=== PATIENT | female | born 1960 | race Caucasian/White ===

== ENCOUNTER 2017-10-09 08:14 | Inpatient (IN) | payer BC, SELFPAY ==
[2017-10-09 08:16] VITALS: BP 144/67; PULSE 94; RESP 18; TEMP 37.1; O2SAT 98; BMI 31.6
--- NOTE | 2017-10-09 08:35 | CT_ITS ---
STUDY: CT ABDOMEN AND PELVIS WITH CONTRAST REASON FOR EXAM: Female, 56 years old. Diarrhea. RADIATION DOSAGE (If Supplied By Facility): CTDIvol = ( 14.91 ) mGy, DLP = ( 917.97 ) mGycm TECHNIQUE: Transaxial images were obtained from the dome of the diaphragm to the symphysis pubis without oral contrast. 100 ml of Isovue 300 contrast was administered. Sagittal and coronal images were reconstructed. Individualized dose optimization techniques were used for this CT. COMPARISON: None. FINDINGS: The visualized lung bases are unremarkable. The visualized portions of the heart are within normal limits. Normal liver. Normal gallbladder and extrahepatic biliary system. Normal spleen. Normal pancreas. Normal bilateral adrenal glands. Normal right kidney. Normal left kidney. Normal visualized stomach. Normal small intestine. There is thickening of the mckinley of the transverse colon, descending colon and sigmoid colon suggesting colitis. The appendix is visualized and appears normal. Normal abdominal aorta. Normal inferior vena cava. Normal retroperitoneum. Normal urinary bladder. Normal abdominal wall. There are diffuse degenerative changes of the visualized lumbar spine. CT/Abdomen/Pelvis WITH Contrast IMPRESSION: Colitis in the transverse colon, descending colon and sigmoid colon. Electronically Signed: Jose Perdue MD at 11:43 EDT Tel , Service support ,
--- NOTE | 2017-10-09 08:41 | ED.DCSUM_ITS ---
- ER Visit Summary Date of Service: 10/09/17 Chief Complaint: GI bleed History of Present Illness: The patient is a 56 F who developed nausea, vomiting , diarrhea yesterday evening after Easter dinner. Patient states overnight she progressed and passing just bright red blood rectally. She is complaining of abdominal cramping and occasional dizziness. She does describe a vasovagal episode yesterday while on the toilet, but did not have syncope. Patient has never had a colonoscopy previously. She has no known chronic bowel disorders. She is not on anticoagulants. Physical Examination: Vital signs are unremarkable. Patient sitting upright in bed no acute distress. Heart is regular rate and rhythm. Lung sounds are clear. Abdomen is soft with mild lower abdominal tenderness to palpation. There is no guarding or rebound. Hypoactive bowel sounds are present. Test Results: CBC was a white count 22.1 with 84% neutrophils. Hemoglobin is 15.1. Chemistry studies are significant for glucose of 127, otherwise unremarkable. Coags are normal. CT scan of the abdomen and pelvis reveals colitis in the transverse, descending, and sigmoid colon. Lactate was drawn and is normal. Emergency Department Course and Treatment: Patient was given morphine, Zofran, and IV fluids. Due to continued pain she did receive Dilaudid and Bentyl. She is given dose IV Zosyn. I spoke with Dr. Mar as well as the hospitalist and the patient will be admitted. Treatment Plan: [] Disposition: Admit Impression: 1. Colitis 2. GI bleed This note was generated with [employer] dictation software. It may contain incorrect words, spelling, and punctuation that were not noted in review of the chart prior to signing ED Disposition - Plan for ED Patient: Chief Complaint: GI Bleed Referrals: Moses Sutton DO [Primary Care Provider] -
[2017-10-09 08:55] LABS: Absolute Lymphocyte Count 1.82 X10^3/ul (0.83-4.51); Absolute Neutrophil Count 18.5 X10^3/uL (2.0-7.7); Basophil# 0.03 X10^3/uL; Basophil% 0.1 % (0-1); Eosinophil# 0.18 X10^3/uL; Eosinophils% 0.8 % (0-5); Hematocrit 44.5 % (37-47); Hemoglobin 15.1 g/dl (12.0-15.0); Lymphocyte # 1.82 X10^3/ul (4.0); Lymphocyte % 8.3 % (19-41); Mean Corp Hgb Conc 33.9 g/gl (32-36); Mean Corpuscular Volume 85.6 fL (81-99); Mean Platelet Vol. 11.2 fl (6.2-12.0); Monocyte# 1.43 X10^3/uL; Monocyte% 6.5 % (0-10); Neutrophil # 18.54 X10^3/uL (2.7-7.7); Platelet Count 411 K/mm3 (150-450); RBC Distribution Width CV 13.3 % (11.6-14.6); RBC Distribution Width SD 41.2 fl (35.1-43.9); White Blood Count 22.1 K/mm3 (4.4-11.0)
[2017-10-09 08:56] LABS: BUN 14 mg/dL (7-18); Creatinine, Serum 0.85 mg/dL (0.55-1.02); Glucose 127 mg/dL (74-106)
[2017-10-09 08:57] LABS: Anion Gap 9 (5-15); BUN/Creat Ratio 16.5 RATIO (10-20); Calcium,Total 9.4 mg/dL (8.5-10.1); Chloride 102 mmol/L (98-107); EST Glomerular Filtration Rate 74 mL/min (>60); Est Glom Filt Rate - Afr Amer 89 mL/min (>60); Potassium 4.3 mmol/L (3.5-5.1); Sodium Level 137 mmol/L (136-145)
[2017-10-09 08:58] LABS: POSITIVE COUNT NO; POSITIVE DIFFERENTIAL NO; POSITIVE MORPHOLOGY NO
[2017-10-09] MEDS: 0.9% Normal Saline 1,000 ML 1000 ML IV (09:05)
[2017-10-09] MEDS: Ondansetron 4 MG/2 ML Vial IV ×2 (09:05→10:42)
[2017-10-09] MEDS: Morphine 4 MG/ML Syringe IV ×2 (09:06→10:42)
[2017-10-09 09:11] LABS: International Normalized Ratio 1.1; Prothrombin Time (Protime)PT. 13.7 SECONDS (11.7-14.9)
--- NOTE | 2017-10-09 09:35 | CASEMGMT ---
Social Work Note SW in to complete initial assessment as pt is anticipated to be admitted. Introduced self and role at [facility]. Pt presents with pleasant affect as evidenced by smiling and willingness to participate in assessment. She is accompanied by 3 family members and reports to have adequate supports. Reports to be a patient of Dr. Sutton's and utilizes [facility] pharmacy. Pt lives in a one-story home with her spouse and son. The home has two entry steps and no handrails, but the pt denies access issues. DME consists of a walker and cane, but the pt does not use at her baseline. Reports two knee operations in 2017(January and March) by Dr. Gorman, and is no longer participating in outpatient therapy. Pt is not working as she is still recovering from these surgeries, but claims to be financially stable and denies need for resources. Denies hx of substance use, and denies mental health hx. Pt does not anticipate any discharge needs, but made aware staff is available if needs arise. Gisselle Sousa, [employer], D[employer] SUPERINTENDENT
--- NOTE | 2017-10-09 10:31 | ED.RN ---
1020-Report received, care of patient assumed. Patient ambulatory to bathroom with slow and steady gait. C/o increased pain to abd. Await CT scan. Dr. Ronquillo notified of increased pain.
[2017-10-09 10:32] VITALS: BP 189/82; PULSE 77; RESP 16; O2SAT 99
[2017-10-09] MEDS: 0.9% Normal Saline 1,000 ML 150 ML IV (10:43)
[2017-10-09] MEDS: HYDROmorphone 1 MG/ML Syringe 0.5 MG IV (11:31)
[2017-10-09 12:01] LABS: Lactic Acid 1.2 mmol/L (0.4-2.0)
[2017-10-09 12:08] VITALS: BP 184/107; PULSE 89; RESP 14; O2SAT 98
[2017-10-09] MEDS: Dicyclomine 20 MG/2 ML Vial IM (12:19)
[2017-10-09 13:21] VITALS: BP 168/77; PULSE 87; RESP 16; O2SAT 98
[2017-10-09 13:29] LABS: Erythrocyte Sedimentation Rate 11 mm/hr (0-30)
[2017-10-09 13:51] VITALS: BP 169/76; PULSE 72; RESP 18; TEMP 36.9; O2SAT 98
[2017-10-09 13:52] VITALS: BMI 31.9
[2017-10-09 13:59] VITALS: BMI 32.0
[2017-10-09] MEDS: 0.9% Normal Saline 1,000 ML 100 ML IV (14:11)
[2017-10-09] MEDS: levoFLOXacin IV 500 MG/100 ML BAG 100 MG IV (14:30)
[2017-10-09] MEDS: HYDROmorphone 1 MG/ML Syringe IV ×2 (14:34→17:09)
--- NOTE | 2017-10-09 16:35 | PCM.HP.STD ---
History of Present Illness Date of Admission: 10/09/17 Chief Complaint: Abdominal pain and bloody diarrhea The patient is a 56 year old female with past medical history of essential hypertension and dyslipidemia who presented to the emergency room due to abdominal pain and bloody diarrhea. She developed acute onset of nausea, vomiting, diarrhea yesterday evening after Easter dinner. She later had red blood per rectum and abdominal cramping. Started feeling dizzy and decided to come to the emergency room for evaluation. CT scan of the abdomen and pelvis done in the ED demonstrated colitis in the transverse , descending and sigmoid colon. Also noted to have leukocytosis of more than 22,000, on IV Zosyn and admitted to the hospital for further management. General Surgery was consulted from the emergency room . Past Medical History Allergies meperidine [From Demerol] Allergy (Verified 10/09/17 08:16) Shortness of breath ETHIBOND STITCHES Allergy (Uncoded 10/09/17 08:16) Other NON HEALING/INFECTION SMOOTH STAINLESS Allergy (Uncoded 10/09/17 08:16) Other EATING THE FLESH ON MY SKIN Home Medications: Ambulatory Orders Medication Instructions Recorded Lisinopril/Hydrochlorothiazide 1 tablet PO DAILY 01/16/17 [Zestoretic 10/12.5 Tablet] Valacyclovir HCl [Valacyclovir] 1,000 mg PO BID PRN 01/16/17 Celecoxib [Celebrex] 200 mg PO DAILY 10/09/17 Rosuvastatin Calcium [Crestor] 10 mg PO QHS 10/09/17 Tizanidine HCl [Zanaflex] 2 mg PO Q8H 10/09/17 Smoking Status: Never smoker - *Family History Maternal History Items: No pertinent history VTE Information - Inpt Only VTE Present on Admission: No VTE Mechan Device Prophylaxis: SCD's VTE Pharm Prophylaxis ordered?: No Patient Problems: Active and Suspected Problems Colitis (Acute) GI bleeding (Acute) - Physical Exam General: Alert, Oriented x3 HEENT: Atraumatic Oral: Moist Mucosa Neck: Supple Lungs: Clear to auscultation Cardiovascular: Regular rate, Normal S1, Normal S2 Abdomen: Bowel Sounds Present, Soft, Non Tender, Non-Distended Extremities: No edema Neurological: Deep Tendon Reflexes 2+/4 and Symmetrical, Motor Exam 5/5 strength throughout Vital Signs Temp Pulse Resp BP Pulse Ox 98.4 F 72 18 169/76 H 98 04/02/18 13:51 10/09/17 13:51 10/09/17 13:51 10/09/17 13:51 10/09/17 13:51 Oxygen Delivery Method Room Air Weight: 87.09 kg Body Mass Index (BMI) 31.9 Assessment/Plan Active and Suspected Problems Colitis (Acute) GI bleeding (Acute) 1. Acute Colitis; this is most likely infectious versus inflammatory, will obtain sedimentation rate and C-reactive protein, the patient has been started on intravenous antibiotics and fluids. Will need to undergo colonoscopy possible biopsy after the acute phase. 2. Acute gastrointestinal bleed secondary to #1 we will continue to monitor her hemoglobin closely. 3. Essential hypertension; the patient is currently dehydrated and will hold off on antihypertensive therapy at this time. 4. Obesity; weight loss recommended. 5. DVT prophylaxis with SCDs. Code Visit Inpatient E&M: 14685 Init Hosp L3
--- NOTE | 2017-10-09 16:40 | CON.PCM_ITS ---
Problem List (1) Colitis Status: Acute (2) GI bleeding Status: Acute Qualifiers: GI bleed type/associated pathology: unspecified gastrointestinal hemorrhage type Qualified Code(s): K92.2 - Gastrointestinal hemorrhage, unspecified Reason for Consult Date of Consultation: 10/09/17 History of Present Illness: The patient is a 56 F who developed nausea, vomiting, diarrhea yesterday evening after Easter dinner. Patient states overnight she progressed and passing just bright red blood rectally. She is complaining of abdominal cramping and occasional dizziness. She does describe a vasovagal episode yesterday while on the toilet, but did not have syncope. Patient has never had a colonoscopy previously. She has no known chronic bowel disorders. She is not on anticoagulants. A day or 2 prior to Easter dinner she did have a hamburger from [facility] but felt fine after that. Patient has never had a history of colitis or diverticulitis in the past. Past Medical History Allergies meperidine [From Demerol] Allergy (Verified 10/09/17 08:16) Shortness of breath ETHIBOND STITCHES Allergy (Uncoded 10/09/17 08:16) Other NON HEALING/INFECTION SMOOTH STAINLESS Allergy (Uncoded 10/09/17 08:16) Other EATING THE FLESH ON MY SKIN Home Medications: Ambulatory Orders Medication Instructions Recorded Lisinopril/Hydrochlorothiazide 1 tablet PO DAILY 01/16/17 [Zestoretic 10/12.5 Tablet] Valacyclovir HCl [Valacyclovir] 1,000 mg PO BID PRN 01/16/17 Celecoxib [Celebrex] 200 mg PO DAILY 10/09/17 Rosuvastatin Calcium [Crestor] 10 mg PO QHS 10/09/17 Tizanidine HCl [Zanaflex] 2 mg PO Q8H 10/09/17 Surgical History: - - Knee surgery Smoking Status: Never smoker Alcohol: Rare - *Family History Maternal History Items: No pertinent history Review of Systems Constitutional: Denies: Chills, Fever, Weight Change Eyes: Denies: Blurred vision, Pain, Redness, Vision Change HEENT: Denies: Dysphasia, Ear Pain, Eye Pain, Head Aches, Hearing Changes, Sore Throat Cardiovascular: Denies: Chest Pain, Chest Pressure, Chest Tightness, Palpitations Respiratory: Denies: Cough, Hemoptysis, Shortness of breath at rest, Shortness of breath upon exertion, Wheezing Gastrointestinal: Reports: Abdominal Pain, Diarrhea, Hematochezia, Nausea, Vomiting Genitourinary: Denies: Dysuria, Frequency, Hematuria, Urgency Musculoskeletal: Denies: Joint Pain Skin: Denies: Lesions, Rash, Wounds Neurological: Denies: Change in Speech, Confusion, Numbness, Tingling, Seizures Psychiatric: Denies: Anxiety, Depression Endocrine: Denies: Heat/ Cold Intolerance, Polydipsia, Polyuria Hematologic/ Lymphatic: Denies: Adenopathy, Easy Bruising Patient Problems: Active and Suspected Problems Colitis (Acute) GI bleeding (Acute) - Physical Exam General: Alert, Oriented x3 Lungs: Clear to auscultation Cardiovascular: Regular rate, Regular Rhythm, No murmurs Abdomen: Soft, Distended, Obese, Tender - Tenderness is mostly in the left upper quadrant radiating down to the left flank area. Vital Signs Temp Pulse Resp BP Pulse Ox 98.4 F 72 18 169/76 H 98 10/09/17 13:51 10/09/17 13:51 10/09/17 13:51 10/09/17 13:51 10/09/17 13:51 Oxygen Delivery Method Room Air Weight: 192 lb Body Mass Index (BMI) 31.9 Assessment/Plan Active and Suspected Problems Colitis (Acute) GI bleeding (Acute) We will follow along with the patient. Hopefully her symptoms will improve and we will not need to do a colonoscopy during this admission. However if she is increasing in discomfort will need to reconsider a possible colonoscopy at this admission. However I would like not to do that for fear of perforation.
[2017-10-09 19:52] VITALS: BP 134/76; PULSE 87; RESP 16; TEMP 36.9; O2SAT 100
[2017-10-09] MEDS: Acetaminophen 325 MG Tablet 650 MG PO (20:37)
[2017-10-10] MEDS: 0.9% Normal Saline 1,000 ML 100 ML IV ×3 (00:12→23:31)
[2017-10-10 02:00] VITALS: BP 134/68; PULSE 81; RESP 16; TEMP 36.8; O2SAT 98
[2017-10-10] MEDS: HYDROmorphone 1 MG/ML Syringe IV ×4 (02:57→17:06)
[2017-10-10 06:33] LABS: Absolute Lymphocyte Count 2.16 X10^3/ul (0.83-4.51); Basophil# 0.02 X10^3/uL; Basophil% 0.1 % (0-1); Eosinophil# 0.17 X10^3/uL; Hematocrit 36.7 % (37-47); Hemoglobin 11.9 g/dl (12.0-15.0); Lymphocyte # 2.16 X10^3/ul (4.0); Lymphocyte % 12.9 % (19-41); Mean Corp Hgb Conc 32.4 g/gl (32-36); Mean Corpuscular Hgb 28.5 pg (27.0-32.0); Mean Platelet Vol. 10.7 fl (6.2-12.0); Monocyte% 8.4 % (0-10); Neutrophil # 12.98 X10^3/uL (2.7-7.7); Neutrophil % 77.4 % (47-70); Platelet Count 262 K/mm3 (150-450); RBC Distribution Width CV 13.7 % (11.6-14.6); RBC Distribution Width SD 44.2 fl (35.1-43.9); Red Blood Count 4.17 M/mm3 (4.2-5.4); White Blood Count 16.8 K/mm3 (4.4-11.0)
[2017-10-10 06:34] LABS: POSITIVE COUNT NO; POSITIVE DIFFERENTIAL NO; POSITIVE MORPHOLOGY NO
[2017-10-10 06:49] LABS: Anion Gap 6 (5-15); BUN 5 mg/dL (7-18); BUN/Creat Ratio 9.2 RATIO (10-20); Calcium,Total 8.1 mg/dL (8.5-10.1); Chloride 108 mmol/L (98-107); Creatinine, Serum 0.54 mg/dL (0.55-1.02); EST Glomerular Filtration Rate 123 mL/min (>60); Est Glom Filt Rate - Afr Amer 149 mL/min (>60); Estimated Creatinine Clearance 104.68 ml/min; Glucose 112 mg/dL (74-106); Potassium 3.6 mmol/L (3.5-5.1); Sodium Level 139 mmol/L (136-145)
--- NOTE | 2017-10-10 08:12 | PN.SURG_ITS ---
Patient Problems: Active and Suspected Problems Colitis (Acute) GI bleeding (Acute) Subjective: Patient evaluated resting comfortably in bed. She notes her abdominal discomfort is much improved. She has not noted blood per rectum over night. She denies nausea, vomiting. She is tolerating clear liquids well. C Diff was negative. - Physical Exam General: Alert, Oriented x3, Cooperative Abdomen: Soft, Non-Distended, Hyperactive Bowel Sounds, Tender - generalized Vital Signs Temp Pulse Resp BP Pulse Ox 98.3 F 81 16 134/68 H 98 10/10/17 02:00 10/10/17 02:00 10/10/17 02:00 10/10/17 02:00 10/10/17 02:00 Oxygen Delivery Method Room Air Weight: 192 lb Body Mass Index (BMI) 31.9 Intake and Output for Last 24 Hours 10/08/17 10/09/17 10/10/17 23:59 23:59 23:59 Intake Total 301 / 301 2463 / 2463 Output Total 400 / 400 200 / 200 Balance -99 / -99 2263 / 2263 Laboratory Tests Past 24 Hrs 10/10/17 10/10/17 06:06 06:06 WBC 16.8 H RBC 4.17 L Hgb 11.9 L Hct 36.7 L MCV 88.0 MCH 28.5 MCHC 32.4 RDW 13.7 RDW Differential 44.2 H Plt Count 262 MPV 10.7 Immature Gran % (Auto) 0.200 Neut % (Auto) 77.4 H Lymph % (Auto) 12.9 L [place] % (Auto) 8.4 Eos % (Auto) 1.0 Baso % (Auto) 0.1 Absolute Neuts (auto) 13.0 H Absolute Lymphs (auto) 2.16 Total Counted Not Reportable Sodium 139 Potassium 3.6 Chloride 108 H Carbon Dioxide 25.0 Anion Gap 6 BUN 5 L Creatinine 0.54 L Estim Creat Clear Calc 104.68 Est GFR (MDRD) Af Amer 149 Est GFR (MDRD) Non-Af 123 BUN/Creatinine Ratio 9.2 L Glucose 112 H Calcium 8.1 L Medical Necessity - Tobacco Use Smoking Status: Never smoker Assessment/Plan Active and Suspected Problems Colitis (Acute) GI bleeding (Acute) I am following this patient in conjunction with Dr. Mar Impression: Colitis, unknown etiology Stool cultures pending C Diff negative Patient improving Continue antibiotics at this point We will continue to monitor this patient
[2017-10-10 08:49] VITALS: BP 119/67; PULSE 86; RESP 18; TEMP 36.8; O2SAT 97
[2017-10-10] MEDS: levoFLOXacin IV 500 MG/100 ML BAG 100 MG IV (08:51)
--- NOTE | 2017-10-10 11:44 | PN_ITS ---
Patient Problems: Active and Suspected Problems Colitis (Acute) GI bleeding (Acute) Subjective: CC: Abdominal pain and bloody diarrhea Objective: She reports improvement in her abdominal pain and bloody diarrhea. She wants to advance her diet. Vitals/I&O's: Vital Signs Temp Pulse Resp BP Pulse Ox 98.3 F 86 18 119/67 97 10/10/17 08:49 10/10/17 08:49 10/10/17 08:49 10/10/17 08:49 10/10/17 08:49 Oxygen Delivery Method Room Air Weight: 87.09 kg Body Mass Index (BMI) 31.9 Intake and Output for Last 24 Hours 10/08/17 10/09/17 10/10/17 23:59 23:59 23:59 Intake Total 301 / 301 2974 / 2974 Output Total 400 / 400 250 / 250 Balance -99 / -99 2724 / 2724 General: Alert, Oriented x3 Neck: Supple Lungs: Clear to auscultation, No wheeze Cardiovascular: Regular rate, Normal S1, Normal S2 Abdomen: Bowel Sounds Present, Soft, Non-Distended Extremities: No edema Laboratory Results 10/10/17 06:06: WBC 16.8 H, RBC 4.17 L, Hgb 11.9 L, Hct 36.7 L, MCV 88.0, MCH 28.5, MCHC 32.4, RDW 13.7, RDW Differential 44.2 H, Plt Count 262, MPV 10.7, Immature Gran % (Auto) 0.200, Neut % (Auto) 77.4 H, Lymph % (Auto) 12.9 L, [place] % (Auto) 8.4, Eos % (Auto) 1.0, Baso % (Auto) 0.1, Absolute Neuts (auto) 13.0 H , Absolute Lymphs (auto) 2.16, Total Counted Not Reportable 10/10/17 06:06: Sodium 139, Potassium 3.6, Chloride 108 H, Carbon Dioxide 25.0, Anion Gap 6, BUN 5 L, Creatinine 0.54 L, Estim Creat Clear Calc 104.68, Est GFR (MDRD) Af Amer 149, Est GFR (MDRD) Non-Af 123, BUN/Creatinine Ratio 9.2 L, Glucose 112 H, Calcium 8.1 L Current Medications Acetaminophen (Tylenol) 650 mg PO Q6H PRN PRN PRN Reason: HEADACHE Last Admin: 10/09/17 20:37 Dose: 650 mg Hydromorphone HCl (Dilaudid Iv) 1 mg IV Q2H PRN PRN PRN Reason: SEVERE PAIN (6-10/10) Last Admin: 10/10/17 08:59 Dose: 1 mg Metronidazole (Flagyl) 500 mg in 100 mls @ 100 mls/hr IV Q6 PAGE Last Admin: 10/10/17 06:26 Dose: 100 mls/hr Sodium Chloride () 1,000 mls @ 100 mls/hr IV .Q10H PAGE Last Admin: 10/10/17 00:12 Dose: 100 mls/hr Levofloxacin (Levaquin Iv) 500 mg in 100 mls @ 100 mls/hr IV Q24 PAGE Last Admin: 10/10/17 08:51 Dose: 100 mls/hr Magnesium Hydroxide (Milk Of Magnesia) 30 ml PO DAILY PRN PRN PRN Reason: Constipation Sodium Chloride () 5 - 30 ml IV UD PRN PRN Reason: SALINE FLUSH Medical Necessity - Tobacco Use Smoking Status: Never smoker Assessment/Plan Active and Suspected Problems Colitis (Acute) GI bleeding (Acute) 1. Acute Colitis; infectious status negative thus far, we will continue on IV Flagyl and Levaquin. 2. Acute gastrointestinal bleed secondary to #1 we will continue to monitor her hemoglobin closely. she is to undergo colonoscopy as an outpatient after adequately treated with antibiotics. 3. Essential hypertension; we bri resume her antihypertensive therapy once she is adequately hydrated. 4. Obesity; weight loss recommended. 5. DVT prophylaxis with SCDs. Code Visit Inpatient E&M: 50771 Subs Hosp L2
[2017-10-10] MEDS: HYDROcodone Bitartrate/Apap 5/325 Tablet PO ×2 (13:34→23:31)
[2017-10-10 13:49] VITALS: BP 136/73; PULSE 93; RESP 18; TEMP 36.8; O2SAT 94
[2017-10-10 19:53] VITALS: BP 130/78; PULSE 78; RESP 16; TEMP 37; O2SAT 97
[2017-10-11 01:53] VITALS: BP 137/74; PULSE 91; RESP 16; TEMP 36.8; O2SAT 95
[2017-10-11] MEDS: HYDROcodone Bitartrate/Apap 5/325 Tablet PO ×3 (06:29→20:53)
--- NOTE | 2017-10-11 06:46 | PCM.PN.SRG ---
Patient Problems: Active and Suspected Problems Colitis (Acute) GI bleeding (Acute) Subjective: Patient evaluated resting comfortably in bed. Patient notes continued loose stools. She denies nausea, vomiting. Patient denies passing flatus. She is currently on a full liquid diet. She notes a metal-like taste in her mouth. Patient denies bright red blood per rectum. She notes more bloating this morning. She continues to note generalized abdominal pain/discomfort. - Physical Exam General: Alert, Oriented x3, Cooperative Abdomen: Hypoactive Bowel Sounds, Distended, Tender - generalized Vital Signs Temp Pulse Resp BP Pulse Ox 98.3 F 91 16 137/74 H 95 10/11/17 01:53 10/11/17 01:53 10/11/17 01:53 10/11/17 01:53 10/11/17 01:53 Oxygen Delivery Method Room Air Weight: 192 lb 0.362 oz Body Mass Index (BMI) 31.9 Intake and Output for Last 24 Hours 10/09/17 10/10/17 10/11/17 23:59 23:59 23:59 Intake Total 301 / 301 4585 / 4585 915 / 915 Output Total 400 / 400 600 / 600 50 / 50 Balance -99 / -99 3985 / 3985 865 / 865 Laboratory Tests Past 24 Hrs 10/10/17 06:06 Sodium 139 Potassium 3.6 Chloride 108 H Carbon Dioxide 25.0 Anion Gap 6 BUN 5 L Creatinine 0.54 L Estim Creat Clear Calc 104.68 Est GFR (MDRD) Af Amer 149 Est GFR (MDRD) Non-Af 123 BUN/Creatinine Ratio 9.2 L Glucose 112 H Calcium 8.1 L Medical Necessity - Tobacco Use Smoking Status: Never smoker Assessment/Plan Active and Suspected Problems Colitis (Acute) GI bleeding (Acute) I am following this patient in conjunction with Dr. Mar Impression: Colitis, unknown etiology. Ileus. Labs pending Stool cultures negative Continue full liquid diet. Avoid high fiber foods Discussed ambulation multiple times today Await flatus prior to discharge We will continue to monitor this patient. Not ready for discharge today. Will check patient's progress later today Code Visit Inpatient E&M: [id number] [facility] Hosp L1
[2017-10-11 07:32] LABS: Absolute Lymphocyte Count 2.58 X10^3/ul (0.83-4.51); Absolute Neutrophil Count 10.1 X10^3/uL (2.0-7.7); Basophil# 0.02 X10^3/uL; Basophil% 0.1 % (0-1); Eosinophil# 0.27 X10^3/uL; Hematocrit 33.7 % (37-47); Lymphocyte # 2.58 X10^3/ul (4.0); Lymphocyte % 18.7 % (19-41); Mean Corp Hgb Conc 32.6 g/gl (32-36); Mean Corpuscular Hgb 28.7 pg (27.0-32.0); Mean Platelet Vol. 10.4 fl (6.2-12.0); Monocyte% 5.8 % (0-10); Neutrophil # 10.14 X10^3/uL (2.7-7.7); Neutrophil % 73.3 % (47-70); Platelet Count 253 K/mm3 (150-450); RBC Distribution Width CV 13.7 % (11.6-14.6); RBC Distribution Width SD 44.3 fl (35.1-43.9); Red Blood Count 3.83 M/mm3 (4.2-5.4); White Blood Count 13.8 K/mm3 (4.4-11.0)
[2017-10-11 07:37] LABS: POSITIVE COUNT NO; POSITIVE DIFFERENTIAL NO; POSITIVE MORPHOLOGY NO
[2017-10-11 07:45] LABS: Anion Gap 7 (5-15); BUN 3 mg/dL (7-18); BUN/Creat Ratio 5.8 RATIO (10-20); Calcium,Total 8.2 mg/dL (8.5-10.1); Chloride 109 mmol/L (98-107); Creatinine, Serum 0.51 mg/dL (0.55-1.02); EST Glomerular Filtration Rate 131 mL/min (>60); Est Glom Filt Rate - Afr Amer 159 mL/min (>60); Estimated Creatinine Clearance 110.83 ml/min; Glucose 108 mg/dL (74-106); Potassium 3.3 mmol/L (3.5-5.1); Sodium Level 142 mmol/L (136-145)
[2017-10-11 08:55] VITALS: BP 144/71; PULSE 76; RESP 16; TEMP 36.8; O2SAT 99
[2017-10-11] MEDS: levoFLOXacin IV 500 MG/100 ML BAG 100 MG IV (09:17)
[2017-10-11 14:42] VITALS: BP 151/81; PULSE 77; RESP 16; TEMP 37; O2SAT 99
--- NOTE | 2017-10-11 16:49 | PCM.PN.HOSP ---
Patient Problems: Active and Suspected Problems Colitis (Acute) GI bleeding (Acute) Subjective: CC: follow up on abdominal pain and bloody diarrhea Objective: The patient reports improvement in abdominal pain and bloody diarrhea. No acute events reported overnight. Vitals/I&O's: Vital Signs Temp Pulse Resp BP Pulse Ox 98.6 F 77 16 151/81 H 99 10/11/17 14:42 10/11/17 14:42 10/11/17 14:42 10/11/17 14:42 10/11/17 14:42 Oxygen Delivery Method Room Air Weight: 87.1 kg Body Mass Index (BMI) 31.9 Intake and Output for Last 24 Hours 10/09/17 10/10/17 10/11/17 23:59 23:59 23:59 Intake Total 301 / 301 4585 / 4585 915 / 915 Output Total 400 / 400 600 / 600 50 / 50 Balance -99 / -99 3985 / 3985 865 / 865 General: Alert, Oriented x3 Oral: Moist Mucosa Neck: Supple Lungs: Clear to auscultation Cardiovascular: Regular rate, Normal S1, Normal S2 Abdomen: Bowel Sounds Present Neurological: Cranial nerves II-XII grossly intact, Deep Tendon Reflexes 2+/4 and Symmetrical, Motor Exam 5/5 strength throughout Laboratory Results 10/11/17 07:04: WBC 13.8 H, RBC 3.83 L, Hgb 11.0 L, Hct 33.7 L, MCV 88.0, MCH 28.7, MCHC 32.6, RDW 13.7, RDW Differential 44.3 H, Plt Count 253, MPV 10.4, Immature Gran % (Auto) 0.100, Neut % (Auto) 73.3 H, Lymph % (Auto) 18.7 L, [place] % (Auto) 5.8, Eos % (Auto) 2.0, Baso % (Auto) 0.1, Absolute Neuts (auto) 10.1 H, Absolute Lymphs (auto) 2.58, Total Counted Not Reportable 10/11/17 07:04: Sodium 142, Potassium 3.3 L, Chloride 109 H, Carbon Dioxide 26.0, Anion Gap 7, BUN 3 L, Creatinine 0.51 L, Estim Creat Clear Calc 110.83, Est GFR (MDRD) Af Amer 159, Est GFR (MDRD) Non-Af 131, BUN/Creatinine Ratio 5.8 L, Glucose 108 H, Calcium 8.2 L Current Medications Acetaminophen (Tylenol) 650 mg PO Q6H PRN PRN PRN Reason: HEADACHE Last Admin: 10/09/17 20:37 Dose: 650 mg Hydrocodone Bitart/Acetaminophen ([place] 5mg-325mg) 1 tablet PO Q6H PRN PRN PRN Reason: SEVERE PAIN (6-10/10) Last Admin: 10/11/17 14:51 Dose: 1 tablet Hydromorphone HCl (Dilaudid Iv) 1 mg IV Q2H PRN PRN PRN Reason: SEVERE PAIN (6-10/10) Last Admin: 10/10/17 17:06 Dose: 1 mg Metronidazole (Flagyl) 500 mg in 100 mls @ 100 mls/hr IV Q6 [facility] Last Admin: 10/11/17 11:19 Dose: 100 mls/hr Levofloxacin (Levaquin Iv) 500 mg in 100 mls @ 100 mls/hr IV Q24 [facility] Last Admin: 10/11/17 09:17 Dose: 100 mls/hr Potassium Chloride/Sodium Chloride (Kcl 20meq In 0.45% Ns 1000ml) 1,000 mls @ 50 mls/hr IV .Q20H [facility] Last Admin: 10/11/17 11:22 Dose: 50 mls/hr Magnesium Hydroxide (Milk Of Magnesia) 30 ml PO DAILY PRN PRN PRN Reason: Constipation Sodium Chloride () 5 - 30 ml IV UD PRN PRN Reason: SALINE FLUSH Medical Necessity - Tobacco Use Smoking Status: Never smoker Assessment/Plan Active and Suspected Problems Colitis (Acute) GI bleeding (Acute) 1. Acute Colitis; infectious workup negative thus far, we will continue on IV Flagyl and Levaquin. 2. Acute gastrointestinal bleed secondary to #1 we will continue to monitor her hemoglobin closely. She is to undergo colonoscopy as an outpatient after adequately treated with antibiotics. 3. Essential hypertension; we will resume her antihypertensive therapy once she is adequately hydrated. 4. Obesity; weight loss recommended. 5. Leukocytosis secondary to #1 this is improving. 6. DVT prophylaxis with SCDs.
--- NOTE | 2017-10-11 16:55 | PN_ITS ---
Patient Problems: Active and Suspected Problems Colitis (Acute) GI bleeding (Acute) Subjective: CC: follow up on abdominal pain and bloody diarrhea Objective: The patient reports improvement in abdominal pain and bloody diarrhea. No acute events reported overnight. Vitals/I&O's: Vital Signs Temp Pulse Resp BP Pulse Ox 98.6 F 77 16 151/81 H 99 10/11/17 14:42 10/11/17 14:42 10/11/17 14:42 10/11/17 14:42 10/11/17 14:42 Oxygen Delivery Method Room Air Weight: 87.1 kg Body Mass Index (BMI) 31.9 Intake and Output for Last 24 Hours 10/09/17 10/10/17 10/11/17 23:59 23:59 23:59 Intake Total 301 / 301 4585 / 4585 915 / 915 Output Total 400 / 400 600 / 600 50 / 50 Balance -99 / -99 3985 / 3985 865 / 865 General: Alert, Oriented x3 Oral: Moist Mucosa Neck: Supple Lungs: Clear to auscultation Cardiovascular: Regular rate, Normal S1, Normal S2 Abdomen: Bowel Sounds Present Neurological: Cranial nerves II-XII grossly intact, Deep Tendon Reflexes 2+/4 and Symmetrical, Motor Exam 5/5 strength throughout Laboratory Results 10/11/17 07:04: WBC 13.8 H, RBC 3.83 L, Hgb 11.0 L, Hct 33.7 L, MCV 88.0, MCH 28.7, MCHC 32.6, RDW 13.7, RDW Differential 44.3 H, Plt Count 253, MPV 10.4, Immature Gran % (Auto) 0.100, Neut % (Auto) 73.3 H, Lymph % (Auto) 18.7 L, [place] % (Auto) 5.8, Eos % (Auto) 2.0, Baso % (Auto) 0.1, Absolute Neuts (auto) 10.1 H , Absolute Lymphs (auto) 2.58, Total Counted Not Reportable 10/11/17 07:04: Sodium 142, Potassium 3.3 L, Chloride 109 H, Carbon Dioxide 26.0 , Anion Gap 7, BUN 3 L, Creatinine 0.51 L, Estim Creat Clear Calc 110.83, Est GFR (MDRD) Af Amer 159, Est GFR (MDRD) Non-Af 131, BUN/Creatinine Ratio 5.8 L, Glucose 108 H, Calcium 8.2 L Current Medications Acetaminophen (Tylenol) 650 mg PO Q6H PRN PRN PRN Reason: HEADACHE Last Admin: 10/09/17 20:37 Dose: 650 mg Hydrocodone Bitart/Acetaminophen ([place] 5mg-325mg) 1 tablet PO Q6H PRN PRN PRN Reason: SEVERE PAIN (6-10/10) Last Admin: 10/11/17 14:51 Dose: 1 tablet Hydromorphone HCl (Dilaudid Iv) 1 mg IV Q2H PRN PRN PRN Reason: SEVERE PAIN (6-10/10) Last Admin: 10/10/17 17:06 Dose: 1 mg Metronidazole (Flagyl) 500 mg in 100 mls @ 100 mls/hr IV Q6 [facility] Last Admin: 10/11/17 11:19 Dose: 100 mls/hr Levofloxacin (Levaquin Iv) 500 mg in 100 mls @ 100 mls/hr IV Q24 [facility] Last Admin: 10/11/17 09:17 Dose: 100 mls/hr Potassium Chloride/Sodium Chloride (Kcl 20meq In 0.45% Ns 1000ml) 1,000 mls @ 50 mls/hr IV .Q20H [facility] Last Admin: 10/11/17 11:22 Dose: 50 mls/hr Magnesium Hydroxide (Milk Of Magnesia) 30 ml PO DAILY PRN PRN PRN Reason: Constipation Sodium Chloride () 5 - 30 ml IV UD PRN PRN Reason: SALINE FLUSH Medical Necessity - Tobacco Use Smoking Status: Never smoker Assessment/Plan Active and Suspected Problems Colitis (Acute) GI bleeding (Acute) 1. Acute Colitis; infectious workup negative thus far, we will continue on IV Flagyl and Levaquin. 2. Acute gastrointestinal bleed secondary to #1 we will continue to monitor her hemoglobin closely. She is to undergo colonoscopy as an outpatient after adequately treated with antibiotics. 3. Essential hypertension; we will resume her antihypertensive therapy once she is adequately hydrated. 4. Obesity; weight loss recommended. 5. Leukocytosis secondary to #1 this is improving. 6. DVT prophylaxis with SCDs.
[2017-10-11 19:27] VITALS: BP 170/85; PULSE 78; RESP 16; TEMP 37; O2SAT 100
[2017-10-12] MEDS: HYDROcodone Bitartrate/Apap 5/325 Tablet PO ×2 (03:48→21:57)
[2017-10-12] MEDS: Acetaminophen 325 MG Tablet 650 MG PO (03:48)
[2017-10-12 03:52] VITALS: BP 144/82; PULSE 68; RESP 18; TEMP 36.8; O2SAT 98
[2017-10-12 05:51] LABS: Absolute Lymphocyte Count 2.19 X10^3/ul (0.83-4.51); Absolute Neutrophil Count 6.1 X10^3/uL (2.0-7.7); Basophil# 0.02 X10^3/uL; Basophil% 0.2 % (0-1); Eosinophils% 3.3 % (0-5); Hematocrit 31.3 % (37-47); Hemoglobin 10.2 g/dl (12.0-15.0); Lymphocyte # 2.19 X10^3/ul (4.0); Lymphocyte % 23.7 % (19-41); Mean Corp Hgb Conc 32.6 g/gl (32-36); Mean Corpuscular Hgb 28.5 pg (27.0-32.0); Mean Corpuscular Volume 87.4 fL (81-99); Mean Platelet Vol. 10.8 fl (6.2-12.0); Monocyte# 0.59 X10^3/uL; Monocyte% 6.4 % (0-10); Neutrophil # 6.12 X10^3/uL (2.7-7.7); Neutrophil % 66.3 % (47-70); Platelet Count 256 K/mm3 (150-450); RBC Distribution Width CV 13.2 % (11.6-14.6); Red Blood Count 3.58 M/mm3 (4.2-5.4); White Blood Count 9.2 K/mm3 (4.4-11.0)
[2017-10-12 05:59] LABS: POSITIVE COUNT NO; POSITIVE DIFFERENTIAL NO; POSITIVE MORPHOLOGY NO
[2017-10-12 06:11] LABS: Anion Gap 7 (5-15); BUN 2 mg/dL (7-18); BUN/Creat Ratio 3.5 RATIO (10-20); Calcium,Total 8.4 mg/dL (8.5-10.1); Chloride 108 mmol/L (98-107); Creatinine, Serum 0.56 mg/dL (0.55-1.02); EST Glomerular Filtration Rate 118 mL/min (>60); Est Glom Filt Rate - Afr Amer 142 mL/min (>60); Estimated Creatinine Clearance 100.94 ml/min; Glucose 116 mg/dL (74-106); Potassium 3.3 mmol/L (3.5-5.1); Sodium Level 142 mmol/L (136-145)
--- NOTE | 2017-10-12 07:20 | PCM.PN.SRG ---
Patient Problems: Active and Suspected Problems Colitis (Acute) GI bleeding (Acute) Subjective: Patient evaluated resting comfortably in bed. She notes headache and nausea this morning. She notes her abdominal discomfort is improved. She is passing flatus now. She notes her stool has slowed down. She notes her bloating is improved. - Physical Exam General: Alert, Oriented x3, Cooperative Abdomen: Bowel Sounds Present, Soft, Distended, Tender - generalized Vital Signs Temp Pulse Resp BP Pulse Ox 98.3 F 68 18 144/82 H 98 10/12/17 03:52 10/12/17 03:52 10/12/17 03:52 10/12/17 03:52 10/12/17 03:52 Oxygen Delivery Method Room Air Weight: 192 lb 0.362 oz Body Mass Index (BMI) 31.9 Intake and Output for Last 24 Hours 10/10/17 10/11/17 10/12/17 23:59 23:59 23:59 Intake Total 4585 / 4585 915 / 915 944 / 944 Output Total 600 / 600 50 / 50 Balance 3985 / 3985 865 / 865 944 / 944 Laboratory Tests Past 24 Hrs 10/11/17 10/11/17 10/12/17 07:04 07:04 05:18 WBC 13.8 H 9.2 RBC 3.83 L 3.58 L Hgb 11.0 L 10.2 L Hct 33.7 L 31.3 L MCV 88.0 87.4 MCH 28.7 28.5 MCHC 32.6 32.6 RDW 13.7 13.2 RDW Differential 44.3 H 41.0 Plt Count 253 256 MPV 10.4 10.8 Immature Gran % (Auto) 0.100 0.100 Neut % (Auto) 73.3 H 66.3 Lymph % (Auto) 18.7 L 23.7 [place] % (Auto) 5.8 6.4 Eos % (Auto) 2.0 3.3 Baso % (Auto) 0.1 0.2 Absolute Neuts (auto) 10.1 H 6.1 Absolute Lymphs (auto) 2.58 2.19 Total Counted Not Reportable Not Reportable Sodium 142 Potassium 3.3 L Chloride 109 H Carbon Dioxide 26.0 Anion Gap 7 BUN 3 L Creatinine 0.51 L Estim Creat Clear Calc 110.83 Est GFR (MDRD) Af Amer 159 Est GFR (MDRD) Non-Af 131 BUN/Creatinine Ratio 5.8 L Glucose 108 H Calcium 8.2 L 10/12/17 05:18 WBC RBC Hgb Hct MCV MCH MCHC RDW RDW Differential Plt Count MPV Immature Gran % (Auto) Neut % (Auto) Lymph % (Auto) [place] % (Auto) Eos % (Auto) Baso % (Auto) Absolute Neuts (auto) Absolute Lymphs (auto) Total Counted Sodium 142 Potassium 3.3 L Chloride 108 H Carbon Dioxide 27.0 Anion Gap 7 BUN 2 L Creatinine 0.56 Estim Creat Clear Calc 100.94 Est GFR (MDRD) Af Amer 142 Est GFR (MDRD) Non-Af 118 BUN/Creatinine Ratio 3.5 L Glucose 116 H Calcium 8.4 L Medical Necessity - Tobacco Use Smoking Status: Never smoker Assessment/Plan Active and Suspected Problems Colitis (Acute) GI bleeding (Acute) I am following this patient in conjunction with Dr. Mar Impression: Colitis, unknown etiology. Ileus. Labs pending Stool cultures negative Continue full liquid diet. Avoid high fiber foods Discussed ambulation multiple times today Order ASA, Tylenol, and caffeine tablets q 12 PRN for migraine. Excedrin not available. Patient will need colonoscopy as an outpatient We will continue to monitor this patient.
[2017-10-12 07:53] VITALS: BP 138/63; PULSE 62; RESP 16; TEMP 36.7; O2SAT 99
[2017-10-12] MEDS: Caffeine 200 MG Tablet 100 MG PO (08:09)
[2017-10-12] MEDS: Aspirin 325 MG Tablet PO (08:10)
[2017-10-12] MEDS: Acetaminophen 325 MG Tablet PO (08:10)
[2017-10-12] MEDS: levoFLOXacin IV 500 MG/100 ML BAG 100 MG IV (10:07)
[2017-10-12] MEDS: proCHLORPERazine 10 MG/2 ML Vial IM (11:30)
[2017-10-12 14:00] VITALS: BP 164/91; PULSE 68; RESP 16; TEMP 36.8; O2SAT 99
--- NOTE | 2017-10-12 15:58 | PCM.PN.HOSP ---
Patient Problems: Active and Suspected Problems Colitis (Acute) GI bleeding (Acute) Subjective: CC: Follow-up on abdominal pain and diarrhea. Objective: Patient reports less abdominal pain and bloody diarrhea. She does complain of headache as well as nausea, she does not feel well. Vitals/I&O's: Vital Signs Temp Pulse Resp BP Pulse Ox 98.2 F 68 16 164/91 H 99 10/12/17 14:00 10/12/17 14:00 10/12/17 14:00 10/12/17 14:00 10/12/17 14:00 Oxygen Flow Rate (L/min) 99 Oxygen Delivery Method Room Air Weight: 87.1 kg Body Mass Index (BMI) 31.9 Intake and Output for Last 24 Hours 10/10/17 10/11/17 10/12/17 23:59 23:59 23:59 Intake Total 4585 / 4585 915 / 915 1568 / 1568 Output Total 600 / 600 50 / 50 Balance 3985 / 3985 865 / 865 1568 / 1568 General: Alert, Oriented x3 Neck: Supple, No JVD Lungs: Clear to auscultation Cardiovascular: Regular rate, Normal S1 Abdomen: Bowel Sounds Present, Non Tender Extremities: No clubbing Musculoskeletal: No Tenderness to Palpation of Joints or Extremities Neurological: Cranial nerves II-XII grossly intact, Motor Exam 5/5 strength throughout Laboratory Results 10/12/17 05:18: WBC 9.2, RBC 3.58 L, Hgb 10.2 L, Hct 31.3 L, MCV 87.4, MCH 28.5, MCHC 32.6, RDW 13.2, RDW Differential 41.0, Plt Count 256, MPV 10.8, Immature Gran % (Auto) 0.100, Neut % (Auto) 66.3, Lymph % (Auto) 23.7, [place] % (Auto) 6.4, Eos % (Auto) 3.3, Baso % (Auto) 0.2, Absolute Neuts (auto) 6.1, Absolute Lymphs (auto) 2.19, Total Counted Not Reportable 10/12/17 05:18: Sodium 142, Potassium 3.3 L, Chloride 108 H, Carbon Dioxide 27.0, Anion Gap 7, BUN 2 L, Creatinine 0.56, Estim Creat Clear Calc 100.94, Est GFR (MDRD) Af Amer 142, Est GFR (MDRD) Non-Af 118, BUN/Creatinine Ratio 3.5 L, Glucose 116 H, Calcium 8.4 L Current Medications Acetaminophen (Tylenol) 325 mg PO Q12H PRN PRN PRN Reason: HEADACHE Last Admin: 10/12/17 08:10 Dose: 325 mg Hydrocodone Bitart/Acetaminophen ([place] 5mg-325mg) 1 tablet PO Q6H PRN PRN PRN Reason: SEVERE PAIN (6-04/18) Last Admin: 10/12/17 03:48 Dose: 1 tablet Aspirin (Aspirin) 325 mg PO Q12H PRN PRN PRN Reason: HEADACHE Last Admin: 10/12/17 08:10 Dose: 325 mg Caffeine (No Doz) 100 mg PO Q12H PRN PRN PRN Reason: HEADACHE Last Admin: 10/12/17 08:09 Dose: 100 mg Hydromorphone HCl (Dilaudid Iv) 1 mg IV Q2H PRN PRN PRN Reason: SEVERE PAIN (6-04/18) Last Admin: 10/10/17 17:06 Dose: 1 mg Metronidazole (Flagyl) 500 mg in 100 mls @ 100 mls/hr IV Q6 [facility] Last Admin: 10/12/17 11:29 Dose: 100 mls/hr Levofloxacin (Levaquin Iv) 500 mg in 100 mls @ 100 mls/hr IV Q24 [facility] Last Admin: 10/12/17 10:07 Dose: 100 mls/hr Potassium Chloride/Sodium Chloride (Kcl 20meq In 0.45% Ns 1000ml) 1,000 mls @ 50 mls/hr IV .Q20H [facility] Last Admin: 10/12/17 14:12 Dose: 50 mls/hr Magnesium Hydroxide (Milk Of Magnesia) 30 ml PO DAILY PRN PRN PRN Reason: Constipation Prochlorperazine Edisylate (Compazine Iv) 10 mg IM Q4H PRN PRN PRN Reason: NAUSEA/VOMITING Last Admin: 10/12/17 11:30 Dose: 10 mg Sodium Chloride () 5 - 30 ml IV UD PRN PRN Reason: SALINE FLUSH Medical Necessity - Tobacco Use Smoking Status: Never smoker Assessment/Plan Active and Suspected Problems Colitis (Acute) GI bleeding (Acute) 1. Acute Colitis; we will continue on IV Flagyl and Levaquin. 2. Acute gastrointestinal bleed secondary to #1 we will continue to monitor her hemoglobin closely. She is to undergo colonoscopy as an outpatient after adequately treated with antibiotics. 3. Essential hypertension; we will resume her antihypertensive therapy once she is adequately hydrated. 4. Obesity; weight loss recommended. 5. Leukocytosis secondary to #1 , this has improved. 6. Hypokalemia; will replace with both p.o. and IV KCl 7. Headache, Migrainoid, ; continue current treatment 8. DVT prophylaxis with SCDs. Code Visit Inpatient E&M: 83521 Subs Hosp L2
--- NOTE | 2017-10-12 16:05 | PN_ITS ---
Patient Problems: Active and Suspected Problems Colitis (Acute) GI bleeding (Acute) Subjective: CC: Follow-up on abdominal pain and diarrhea. Objective: Patient reports less abdominal pain and bloody diarrhea. She does complain of headache as well as nausea, she does not feel well. Vitals/I&O's: Vital Signs Temp Pulse Resp BP Pulse Ox 98.2 F 68 16 164/91 H 99 10/12/17 14:00 10/12/17 14:00 10/12/17 14:00 10/12/17 14:00 10/12/17 14:00 Oxygen Flow Rate (L/min) 99 Oxygen Delivery Method Room Air Weight: 87.1 kg Body Mass Index (BMI) 31.9 Intake and Output for Last 24 Hours 10/10/17 10/11/17 10/12/17 23:59 23:59 23:59 Intake Total 4585 / 4585 915 / 915 1568 / 1568 Output Total 600 / 600 50 / 50 Balance 3985 / 3985 865 / 865 1568 / 1568 General: Alert, Oriented x3 Neck: Supple, No JVD Lungs: Clear to auscultation Cardiovascular: Regular rate, Normal S1 Abdomen: Bowel Sounds Present, Non Tender Extremities: No clubbing Musculoskeletal: No Tenderness to Palpation of Joints or Extremities Neurological: Cranial nerves II-XII grossly intact, Motor Exam 5/5 strength throughout Laboratory Results 10/12/17 05:18: WBC 9.2, RBC 3.58 L, Hgb 10.2 L, Hct 31.3 L, MCV 87.4, MCH 28.5 , MCHC 32.6, RDW 13.2, RDW Differential 41.0, Plt Count 256, MPV 10.8, Immature Gran % (Auto) 0.100, Neut % (Auto) 66.3, Lymph % (Auto) 23.7, [place] % (Auto) 6.4 , Eos % (Auto) 3.3, Baso % (Auto) 0.2, Absolute Neuts (auto) 6.1, Absolute Lymphs (auto) 2.19, Total Counted Not Reportable 10/12/17 05:18: Sodium 142, Potassium 3.3 L, Chloride 108 H, Carbon Dioxide 27.0 , Anion Gap 7, BUN 2 L, Creatinine 0.56, Estim Creat Clear Calc 100.94, Est GFR (MDRD) Af Amer 142, Est GFR (MDRD) Non-Af 118, BUN/Creatinine Ratio 3.5 L, Glucose 116 H, Calcium 8.4 L Current Medications Acetaminophen (Tylenol) 325 mg PO Q12H PRN PRN PRN Reason: HEADACHE Last Admin: 10/12/17 08:10 Dose: 325 mg Hydrocodone Bitart/Acetaminophen ([place] 5mg-325mg) 1 tablet PO Q6H PRN PRN PRN Reason: SEVERE PAIN (6-04/18) Last Admin: 10/12/17 03:48 Dose: 1 tablet Aspirin (Aspirin) 325 mg PO Q12H PRN PRN PRN Reason: HEADACHE Last Admin: 10/12/17 08:10 Dose: 325 mg Caffeine (No Doz) 100 mg PO Q12H PRN PRN PRN Reason: HEADACHE Last Admin: 10/12/17 08:09 Dose: 100 mg Hydromorphone HCl (Dilaudid Iv) 1 mg IV Q2H PRN PRN PRN Reason: SEVERE PAIN (6-04/18) Last Admin: 10/10/17 17:06 Dose: 1 mg Metronidazole (Flagyl) 500 mg in 100 mls @ 100 mls/hr IV Q6 [facility] Last Admin: 10/12/17 11:29 Dose: 100 mls/hr Levofloxacin (Levaquin Iv) 500 mg in 100 mls @ 100 mls/hr IV Q24 [facility] Last Admin: 10/12/17 10:07 Dose: 100 mls/hr Potassium Chloride/Sodium Chloride (Kcl 20meq In 0.45% Ns 1000ml) 1,000 mls @ 50 mls/hr IV .Q20H [facility] Last Admin: 10/12/17 14:12 Dose: 50 mls/hr Magnesium Hydroxide (Milk Of Magnesia) 30 ml PO DAILY PRN PRN PRN Reason: Constipation Prochlorperazine Edisylate (Compazine Iv) 10 mg IM Q4H PRN PRN PRN Reason: NAUSEA/VOMITING Last Admin: 10/12/17 11:30 Dose: 10 mg Sodium Chloride () 5 - 30 ml IV UD PRN PRN Reason: SALINE FLUSH Medical Necessity - Tobacco Use Smoking Status: Never smoker Assessment/Plan Active and Suspected Problems Colitis (Acute) GI bleeding (Acute) 1. Acute Colitis; we will continue on IV Flagyl and Levaquin. 2. Acute gastrointestinal bleed secondary to #1 we will continue to monitor her hemoglobin closely. She is to undergo colonoscopy as an outpatient after adequately treated with antibiotics. 3. Essential hypertension; we will resume her antihypertensive therapy once she is adequately hydrated. 4. Obesity; weight loss recommended. 5. Leukocytosis secondary to #1 , this has improved. 6. Hypokalemia; will replace with both p.o. and IV KCl 7. Headache, Migrainoid, ; continue current treatment 8. DVT prophylaxis with SCDs. Code Visit Inpatient E&M: 73747 Subs Hosp L2
[2017-10-12 22:00] VITALS: BP 154/80; PULSE 81; RESP 18; TEMP 37.2; O2SAT 99
[2017-10-13 03:00] VITALS: BP 147/97; PULSE 75; RESP 16; TEMP 36.9; O2SAT 97
[2017-10-13 07:39] VITALS: BP 155/78; PULSE 70; RESP 16; TEMP 36.7; O2SAT 98
[2017-10-13] MEDS: HYDROcodone Bitartrate/Apap 5/325 Tablet PO (08:05)
--- NOTE | 2017-10-13 09:12 | PCM.PN.SRG ---
Patient Problems: Active and Suspected Problems Colitis (Acute) GI bleeding (Acute) Subjective: Patient is starting to feel better today. She had a large regular bowel movement. Her abdomen is still sore but is not as tender as it once was. She is tolerating clear liquids. Objective: Her abdomen is soft no rebound or guarding or peritoneal signs are identified no masses are palpated. - Physical Exam Vital Signs Temp Pulse Resp BP Pulse Ox 98.1 F 70 16 155/78 H 98 10/13/17 07:39 10/13/17 07:39 10/13/17 07:39 10/13/17 07:39 10/13/17 07:39 Oxygen Flow Rate (L/min) 99 Oxygen Delivery Method Room Air Weight: 192 lb 0.362 oz Body Mass Index (BMI) 31.9 Intake and Output for Last 24 Hours 10/11/17 10/12/17 10/13/17 23:59 23:59 23:59 Intake Total 915 / 915 2008 Output Total 50 / 50 Balance 865 / 865 2008 Medical Necessity - Tobacco Use Smoking Status: Never smoker Assessment/Plan Active and Suspected Problems Colitis (Acute) GI bleeding (Acute) At this point I believe that she probably can be discharged home on oral antibiotics and clear liquid diet. I will see her back in my office in 1 week and get her scheduled for a colonoscopy at that time.
[2017-10-13] MEDS: levoFLOXacin IV 500 MG/100 ML BAG 100 MG IV (09:31)
--- NOTE | 2017-10-13 10:10 | PCM.DC ---
- Discharge Diagnoses Current Active Problems: Current Active and Chronic Problems Colitis (Acute) GI bleeding (Acute) You will use the following diet at home:: Regular Discharge Activity: Return to Normal Activity Allergies/Adverse Reactions: Allergies meperidine [From Demerol] Allergy (Verified 10/09/17 08:16) Shortness of breath ETHIBOND STITCHES Allergy (Uncoded 10/10/17 07:44) NON HEALING/INFECTION surgical steel Allergy (Uncoded 10/10/17 11:19) Other Pt states hardware had to be removed because was eating at [facility] Medications to take at Discharge Lisinopril/Hydrochlorothiazide [Zestoretic 10.5 Tablet] 1 tablet PO DAILY 01/16/17 Valacyclovir HCl [Valacyclovir] 1,000 mg PO BID PRN 01/16/17 Rosuvastatin Calcium [Crestor] 10 mg PO QHS 10/09/17 Tizanidine HCl [Zanaflex] 2 mg PO Q8H 10/09/17 Hydrocodone Bitart/Apap 5-325 [C[place] 5/325] 1 tab PO Q6H PRN PRN #20 tab 10/13/17 Metronidazole [Flagyl] 500 mg PO Q8H #30 tab 10/13/17 levoFLOXacin tablet [Levaquin tablet] 500 mg PO DAILY #10 tab 10/13/17 The following prescriptions were given: Hydrocodone Bitart/Apap 5-325 [C[place] 5/325] 1 tab PO Q6H PRN PRN #20 tab PRN Reason: Severe Pain (6-10/10) levoFLOXacin tablet [Levaquin tablet] 500 mg PO DAILY #10 tab Metronidazole [Flagyl] 500 mg PO Q8H #30 tab Primary Care Physician: Moses Sutton DO [Primary Care Provider] - Proposed Discharge Date: 10/13/17
--- NOTE | 2017-10-13 10:25 | PCM.DC.SUM ---
Discharge Date and Diagnosis Date of Admission: 10/09/17 Date of Discharge: 10/13/17 - Primary Discharge Diagnosis Active and Suspected Problems Colitis (Acute) GI bleeding (Acute) Hospital Course and Treatment Summary of Care Provided: The patient is a 56 year old female with past medical history of essential hypertension and dyslipidemia who presented to the emergency room due to abdominal pain and bloody diarrhea. She developed acute onset of nausea, vomiting, diarrhea yesterday evening after Easter dinner. She later had red blood per rectum and abdominal cramping. Started feeling dizzy and decided to come to the emergency room for evaluation. CT scan of the abdomen and pelvis done in the ED demonstrated colitis in the transverse , descending and sigmoid colon. Also noted to have leukocytosis of more than 22,000, on IV antibiotics and admitted to the hospital. Dr. Mar of general surgeon was consulted and recommended 2 weeks of antibiotics and then she will follow-up as an outpatient for colonoscopy. The patient improved clinically and her white count resolved. She was initially placed on bowel rest but has not tolerated clear liquids and advance to regular food. She is stable for discharge home. 1. Acute Colitis; was treated with IV Flagyl and Levaquin and transitioned to oral antibiotics at the time of discharge. 2. Acute gastrointestinal bleed secondary to #1 . 3. Essential hypertension; we will resume her antihypertensive therapy . 4. Obesity; weight loss recommended. 5. Leukocytosis secondary to #1 , this has resolved. 6. Hypokalemia; this has been replaced. Exam at the time of discharge; vital signs were stable. shee was alert and oriented to time place and person. shee did not appear to be any form of distress. S1 and S2 heard no murmur or gallop Lung exam was clear to auscultation with no adventitious sounds. Abdomen was soft nontender with normal bowel sounds. extremity exam did not reveal any edema, palpable pulses bilaterally. Neurologic exam was grossly intact. Discharge Diet: No Restrictions Discharge Activity: Return to Normal Activity Home Medications: Medications to take at Discharge Lisinopril/Hydrochlorothiazide [Zestoretic /.5 Tablet] 1 tablet PO DAILY 01/16/17 Valacyclovir HCl [Valacyclovir] 1,000 mg PO BID PRN 01/16/17 Rosuvastatin Calcium [Crestor] 10 mg PO QHS 10/09/17 Tizanidine HCl [Zanaflex] 2 mg PO Q8H 10/09/17 Hydrocodone Bitart/Apap 5-325 [[place] 5/325] 1 tab PO Q6H PRN PRN #20 tab 10/13/17 Metronidazole [Flagyl] 500 mg PO Q8H #30 tab 10/13/17 levoFLOXacin tablet [Levaquin tablet] 500 mg PO DAILY #10 tab 10/13/17 Following Prescrptions Were Given to Patient: Hydrocodone Bitart/Apap 5-325 [[place] 5/325] 1 tab PO Q6H PRN PRN #20 tab PRN Reason: Severe Pain (-04/18) levoFLOXacin tablet [Levaquin tablet] 500 mg PO DAILY #10 tab Metronidazole [Flagyl] 500 mg PO Q8H #30 tab Primary Care Physician: Moses Sutton DO [Primary Care Provider] - Medical Necessity - Tobacco Use Smoking Status: Never smoker Meaningful Use Info Meaningful Use Diagnoses (Choose all that apply): None applicable Code Visit Inpatient E&M: 60764 Disch Hosp
== END 2017-10-13 12:00 | disposition home or self-care (01) | DRG 392 ==
LOC: ED 08:44 → MS2 13:24
PROVIDERS: Admitting Provider Internal Medicine; Emergency Provider Emergency Medicine; Family Provider Family Medicine; PCP Family Medicine; Visit Provider Internal Medicine
DX: K52.9 Noninfective gastroenteritis and colitis, unspecified (principal); K92.2 Gastrointestinal hemorrhage, unspecified; K56.7 Ileus, unspecified; G43.909 Migraine, unspecified, not intractable, without status migrainosus; E87.6 Hypokalemia; E86.0 Dehydration; I10 Essential (primary) hypertension; E78.5 Hyperlipidemia, unspecified; E66.9 Obesity, unspecified; Z68.31 Body mass index [BMI] 31.0-31.9, adult; Z79.899 Other long term (current) drug therapy
CPT/HCPCS: 36415; 74177; 80048; 83605; 85025; 85610; 85652; 85730; 86850; 86900; 87493; 87506; 99283; J7030; Q9967; A4216; J2405

== ENCOUNTER 2017-10-23 06:02 | Day surgery (SDC) | payer BC, SELFPAY ==
[2017-10-23] VITALS (7 sets, daily range): BP systolic 107–135; BP diastolic 73–92; PULSE 82–97; RESP 16–19; TEMP 36.6–36.9; O2SAT 87–100; BMI 30.4
--- NOTE | 2017-10-23 07:29 | COLBX_PTH ---
PATIENT: YULI COLLINS LOC: EN U#:[id number] AGE/SX: 56/F ROOM: RE10/23/[address]: Dr. Rayshawn Mar MD : [id number] BED: DIS: 10/23/2017 SPEC #: [id number] RECD: 10/23/17 10:09 STATUS: ANA ALEKSEY #: [id number] SAV: 10/23/17 07:[address]: Rayshawn Mar DEPT: SURGICAL PATHOLOGY RECD BY: Shane Infante ENTERED: 10/23/17 10:46 SP TYPE: COLON BX OTHR DR: Dr. Moses Sutton DO Tissues: COLON BIOPSY Procedures: Surgery Specimen Level IV HEADER OPERATION: Colonoscopy PRE-OP DIAGNOSIS: Colitis TISSUE SUBMITTED: Random colonic biopsies MICROSCOPIC DIAGNOSIS Colon, random biopsy: Fragments of colonic mucosa, no pathologic diagnosis. LING:vaughn 10/24/17 MICROSCOPIC DESCRIPTION Slides are reviewed. GROSS DESCRIPTION Received in fixative is one container labeled with the patient's name and designated random colon biopsy. The specimen consists of multiple irregular fragments of light trujillo soft tissue that in aggregate measure 2 x 0.7 x 0.1 cm. The specimen is totally submitted in one cassette. / AM:vaughn 10/23/17 TC:4 CPT: 07724
--- NOTE | 2017-10-23 07:36 | PCM.OPRPT ---
Problem List (1) Disuse colitis Status: Acute Report of Operation Date of Procedure: 10/23/17 Pre-Operative Diagnosis: k52.89 colitis Post-Operative Diagnosis: Same Surgery/Procedure Performed:: [id number] colonoscopy with random colonic biopsies Type of Anesthesia:: MAC Anesthesiologist: Jamison Cardenas Description of Procedure: Patient was brought into the endoscopy suite. Placed in the left lateral decubitus position.She was given graded anesthesia. The scope was inserted into the rectum. The scope was directed through the sigmoid colon, descending colon, transverse colon, ascending colon, to the cecum. Operative findings: 1. Cecum: Normal appearance no mass lesions normal ileocecal valve. 2. Ascending colon: Normal appearance no mass lesions 3. Transverse colon: Normal appearance no mass lesions. 4. Descending colon: Normal appearance no mass lesions 5. Sigmoid colon: Normal appearance no mass lesions no diverticuli identified. 6. Rectum: Normal appearance no mass lesions retroflexion did show some internal hemorrhoids. The mucosa throughout the colon looked entirely normal. There was no diverticular disease seen. I did random colonic biopsies from the cecum to the rectum. She tolerated the procedure well. - Admit VTE Documentation VTE Present on Admission: No VTE Mechan Device Prophylaxis: None VTE Pharm Prophylaxis ordered?: No Reason prophylaxis not ordered:: Treatment Not Indicated
--- NOTE | 2017-10-23 07:42 | OP.PCM_ITS ---
Problem List (1) Disuse colitis Status: Acute Report of Operation Date of Procedure: 10/23/17 Pre-Operative Diagnosis: k52.89 colitis Post-Operative Diagnosis: Same Surgery/Procedure Performed:: [id number] colonoscopy with random colonic biopsies Type of Anesthesia:: MAC Anesthesiologist: Jamison Cardenas Description of Procedure: Patient was brought into the endoscopy suite. Placed in the left lateral decubitus position.She was given graded anesthesia. The scope was inserted into the rectum. The scope was directed through the sigmoid colon, descending colon, transverse colon, ascending colon, to the cecum. Operative findings: 1. Cecum: Normal appearance no mass lesions normal ileocecal valve. 2. Ascending colon: Normal appearance no mass lesions 3. Transverse colon: Normal appearance no mass lesions. 4. Descending colon: Normal appearance no mass lesions 5. Sigmoid colon: Normal appearance no mass lesions no diverticuli identified. 6. Rectum: Normal appearance no mass lesions retroflexion did show some internal hemorrhoids. The mucosa throughout the colon looked entirely normal. There was no diverticular disease seen. I did random colonic biopsies from the cecum to the rectum. She tolerated the procedure well. - Admit VTE Documentation VTE Present on Admission: No VTE Mechan Device Prophylaxis: None VTE Pharm Prophylaxis ordered?: No Reason prophylaxis not ordered:: Treatment Not Indicated
== END 2017-10-23 08:22 | disposition home or self-care (01) ==
LOC: EN 06:03 → AC 06:04
PROVIDERS: Family Provider Family Medicine; PCP Family Medicine; Visit Provider Surgery
PROC: 0DJD8ZZ Inspection of Lower Intestinal Tract, Via Natural or Artificial Opening Endoscopic (ICD-10-PCS; CPT 45378; principal; 2017-10-23 07:25)
DX: K52.9 Noninfective gastroenteritis and colitis, unspecified (principal); K64.8 Other hemorrhoids; R10.9 Unspecified abdominal pain; I10 Essential (primary) hypertension; E78.00 Pure hypercholesterolemia, unspecified; G47.30 Sleep apnea, unspecified; M19.90 Unspecified osteoarthritis, unspecified site; Z78.0 Asymptomatic menopausal state; Z79.899 Other long term (current) drug therapy; Z96.653 Presence of artificial knee joint, bilateral
CPT/HCPCS: 45380; 88305; J7120

== ENCOUNTER → 2018-06-13 07:46 | Outpatient (CLI) | payer BC, SELFPAY ==
--- NOTE | 2018-06-13 07:48 | BI_ITS ---
MAMMOGRAPHY - BILATERAL SCREENING REASON FOR EXAM: Female, 57 years old. Routine annual screening examination. PERTINENT HISTORY: Grandmother with breast cancer. Aunts with breast cancer. History of right stereotactic breast biopsy. TECHNIQUE: Digital bilateral breast kirk (3D mammographic acquisition) in the CC and MLO projections. 2-D mediolateral oblique (MLO) and craniocaudad (CC) views of both breasts were obtained. CAD: Full Field Digital Mammography with Computer Added Detection was performed. COMPARISON: Comparison is made with prior examination dated April 12, 2016 and March 31, 2015. FINDINGS: Breast Composition: The breasts are almost entirely fatty. There are no dominant masses or suspicious calcifications. A tissue clip marker is once again seen in the upper posterior lateral aspect of the right breast in keeping with the history of prior stereotactic biopsy. Stable benign-appearing bilateral axillary lymph nodes. No other significant abnormalities are identified. There has been no significant change since the prior study. BI/SCREENING MAMM (CAD), BILAT IMPRESSION: Stable bilateral screening mammogram. Yearly follow-up mammogram recommended. (A) ASSESSMENT CATEGORY: BIRADS Category 2: Benign. A letter regarding these results will be sent to the patient by the facility within 30 days. Approximately 10% of breast cancers are not detected by mammography. A normal mammogram should not delay biopsy of a clinically suspicious abnormality. [id number] Electronically Signed: Dheeraj Valdez MD at 9:11 EST Tel [phone], Service support ,
== END ==
PROVIDERS: Family Provider Family Medicine; PCP Family Medicine; Visit Provider Family Medicine
DX: Z12.31 Encounter for screening mammogram for malignant neoplasm of breast (principal)
CPT/HCPCS: 77063; 77067

== ENCOUNTER → 2019-03-01 16:52 | Outpatient (CLI) | payer OTHER, SELFPAY ==
--- NOTE | 2019-03-01 17:30 | MRI_ITS ---
STUDY: MRI LUMBAR SPINE WITH AND WITHOUT CONTRAST REASON FOR EXAM: Female, 58 years old. Lumbar neuritis with radiculopathy. Patient has had previous lumbar spine surgery. TECHNIQUE: Standardized fat and water weighted pulse sequences were obtained in the sagittal and axial planes. 20 ml of IV Dotarem was administered for the contrast portion of the examination. COMPARISON: None FINDINGS: T12-L1: There is a small area of abnormal signal near Schmorl's node of the inferior endplate of T12. There is narrowing of this disc. The neural foramina are patent. There is no significant central acquired canal stenosis. Patient appears to have had a discectomy at L5-S1 with surgical fusion of L5 and S1 vertebral segments. Normal lumbar lordosis. There is no substantial scoliosis. Normal conus medullaris that terminates at the T12-L1 level. L1-2: Normal endplates. Normal disc height, signal and morphology. Normal bilateral facet joints. Normal central canal and bilateral lateral recesses. Normal bilateral intervertebral neural foramina. L2-3: There is a moderate annular disc bulge with broad central disc protrusion. There is mild degenerative arthropathy of facet joints. There is mild central acquired canal stenosis. There is abnormal signal of the endplates suggesting sequela of acute Modic changes. This could be acutely symptomatic. L3-4: There is mild annular disk bulge and osteophyte complex. There is mild degenerative arthropathy of the facet joints. Bilateral neuroforamina are narrowed without MR evidence for nerve impingement. There is no significant acquired central canal stenosis. L4-5: Normal endplates. Normal disc height, hydration and morphology. Normal bilateral facet joints. Normal central canal and bilateral lateral recesses. Normal bilateral intervertebral neural foramina. L5-S1: Patient has had a discectomy at this level. There is significant artifact from intrapedicular screws at this level. There is no significant central acquired canal stenosis. Neural foramina are patent. Normal visualized sacral ala. There is moderate paraspinal muscular atrophy posterior to the sacrum probably related to denervation. Abnormal enhancement at the endplates of L2 and L3 is probably related to acute Modic changes. MRI/Spine Lumbar W/WO Contrast IMPRESSION: 1. Acute Modic changes at the endplates of L2-L3 could be acutely symptomatic. 2. Multilevel degenerative disc disease and degenerative arthropathy of the lumbar spine, as described.. Electronically Signed: Nubia Cobb MD at 23:42 EDT , Service support ,
== END ==
PROVIDERS: Family Provider Family Medicine; PCP Family Medicine; Referring Provider Family Medicine; Visit Provider Family Medicine
DX: M54.16 Radiculopathy, lumbar region (principal)
CPT/HCPCS: 72158; A9575

== ENCOUNTER → 2019-04-30 08:22 | Outpatient (CLI) | payer OTHER, SELFPAY ==
[2019-04-30 08:16] VITALS: BMI 30.4
--- NOTE | 2019-04-30 08:23 | RAD_ITS ---
STUDY: X-RAY - LUMBAR SPINE REASON FOR EXAM: Female, 58 years old. Pain TECHNIQUE: 4 view(s) of the lumbar spine were obtained. COMPARISON: None FINDINGS: Normal lumbar lordosis. There is no substantial scoliosis. There is a normal alignment of the vertebrae. There are posterior spinal fusion changes at the L5-S1 level. There is multi-level degenerative disc disease with multi-level disc space narrowing. There is no demonstrated fracture. There is diffuse endplate spondylosis. The soft tissue structures are unremarkable. RAD/L/S Spine Min 4 Views IMPRESSION: Postsurgical and degenerative changes as detailed above. Electronically Signed: Star Rick MD at 22:19 EDT , Service support ,
== END ==
PROVIDERS: Family Provider Family Medicine; PCP Family Medicine; Referring Provider Orthopaedic Surgery; Visit Provider Orthopaedic Surgery
DX: M54.5 Low back pain (principal)
CPT/HCPCS: 72110

== ENCOUNTER 2019-06-05 10:30 | Outpatient (RCR) | payer OTHER, SELFPAY ==
[2019-04-30 08:16] VITALS: BMI 30.4
--- NOTE | 2019-05-08 09:15 | HP.PTEVAL_ITS ---
Patient's Visit Information YULI COLLINS is a 58 year old F referred to Physical Therapy by Judit Orlando MD with a diagnosis of LBP. Date of Evaluation: 05/08/19 Physical Therapist: Tom Gamboa, DPT, OCS, CSCS - Visit Plan Frequency: 2x /Week Duration: 2 Months Plan: 2x/week for 4-8 weeks for pool based... 1. hip flexor, HS, quad stretches. 2. hip and core strength NS. 3. calorie burning adn postural exc. Will do four weeks then rechck and consider exit strategy to community pool or progress to land, dry needling if necdessary. 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 Had fusion in 2002. Had TKAs 2-3 yrs ago adn seems worse since then. Saw [facility] for manips, TENS adn injections. Recommended pain management but pt declined and went to see Dr. Orlando and sent for PT. Lots of OA in back and appropriate for AT. Pain is constant. LBP constant, sometimes muscle spasms up to neck. Worse with fariba and stadning or sitting too long. Housework sucks scrubbing floors terrible. Sleeping is challenging and doesn't get more than 2-3 hours sleep due to discomfort adn pain with rolling. Not employed, Can't due to pain in knees and back. Hobbies include crocheting whcih she still does. Likes wood working but cannot due to pain. - Pain LBP Pain Intensity (Out of 10): 8 Pain Intensity Range: 7, 9 - Objective Left leg longer by 1/4 inch in standing. Pt walks I without AD but wide CHIVO adn avoids L hip extension. Slow. Trasnfers I but hard to get up form supine due to pain. Balance appears good. LB multisegmental AROM ext just to neutral adn L sided pain, L SB painful and mod limtied, R SB OK, felxion max limited to about 25 degrees adn L sided pain. reflexes 1/3 patella and achilles B. Sensation WNL in LE to gross light touch. Strength LE 4/5 without pain. + L SLR adn slump test. HS tight at -30 R 90/90 test. Hip ROM WFL and without pain and symmetrical. Tender to palpation L LB paraspinals minimally and and L trochanteric bursa>R moderately. - Goals Goal 1:: Sleep withotu waking 4 hours at night Goal Time Frame: 6-8 Weeks Goal 2:: Patient report 50% improvement in pain to 4/10 at worst 75% of time Goal Time Frame: 6-8 Weeks Goal 3:: Pt score < 25% disabliity on oswestry Goal Time Frame: 6-8 Weeks Goal 4:: I appropriate pool HEP to be done in community Goal Time Frame: 6-8 Weeks Goal 5:: Play with grandkids and can food without increased pain for one hour Goal Time Frame: 6-8 Weeks - Rehabilitation Potential Physical Therapy Diagnosis: LBP from degenerative changes. Rehabilitation Potential: Fair - Anticipated Interventions Patient/Client Instruction: Educate patient on: Condition, Plan of Care For the Purpose of:: To decrease pain, To increase ROM, To improve nutrient delivery to tissue, To improve muscle performance and motor function Therapeutic Exercise to Include: Strength training, Postural training, Flexibilty training, Gait and locomotor training, In an aquatic setting, Dynamic Lumbar Stabilization For the Purpose of:: To decrease pain, To decrease swelling/inflammation, To increase ROM, To improve nutrient delivery to tissue, To improve muscle performance and motor function, To increase tolerance to activity/condition/position Thank you for the opportunity to evaluate your patient. For Medicare and Medicare HMO plans, please review the plan of care and approve it. It will need to be FAXED BACK to us at [phone] for Medicare purposes. For Medicare only, by signing this I certify the plan of care. Please let me know if there are questions or concerns regarding this plan of care. Physician Signature: Date:
--- NOTE | 2019-06-05 10:57 | HP.PTDCSUM ---
HP - PT D/C Summary It has been my pleasure to treat YULI COLLINS under orders from Judit Zuniga MD, for the diagnosis of LBP for a total of 8 visit(s). Discharge Date: 06/05/19 Please see the following information for a summary of their discharge status. - Subjective Subjective: Always sore at arrival and feels better upon departure. Relief lasts a few hours. 7/10 at depratture is much beter than 9/10 at arrival. Husbands insurance will pay a certain amount of membership. I in ppropriate. Ready to be done with pool adn will try to do it herself. - Pain LBP Pain Intensity (Out of 10): 9 - Overall Improvement % Improvement: 30 - Objective Objective/Function: ROM in spine is min limited in all directions adn stiff but no increased pain. Walks without deficits today. OVERALL DOING BETTER AND NEEDS TO BE CONSISTENT WITH [facility] EX. - Goals Goal 1:: Sleep withotu waking 4 hours at night Goal Progress: stress anxiety Goal 2:: Patient report 50% improvement in pain to 4/10 at worst 75% of time Goal Progress: Progressing Goal 3:: Pt score < 25% disabliity on oswestry Goal Progress: Progressing Goal 4:: I appropriate pool HEP to be done in community Goal Progress: Goal Met Goal 5:: Play with grandkids and can food without increased pain for one hour Goal Progress: Progressing - Plan Plan: D/C - D/C Information Discharge Comments: pT DOING WELL AND SEEMS MOTIVATED TO CONTINUE ON HER OWN. WILL CONTACT DR. ZUNIGA IF PAIN BECOMES UNMANAGEABLE WITH POOL EX. If there are questions or concerns regarding this patient's physical therapy, please feel free to call me at [phone]. Thank you for the referral of this patient. Sincerely, Tom Gamboa, DPT, OCS, CSCS
== END 2019-06-05 19:00 | disposition home or self-care (01) ==
LOC: PT 10:30
PROVIDERS: Family Provider Family Medicine; PCP Family Medicine; Visit Provider Orthopaedic Surgery
DX: M54.5 Low back pain (principal)
CPT/HCPCS: 97113; 97162; 97530

== ENCOUNTER → 2019-12-19 | Outpatient (CLI) | payer OTHER, SELFPAY ==
[2019-04-30 08:16] VITALS: BMI 30.4
--- NOTE | 2019-12-19 08:50 | US_ITS ---
STUDY: ULTRASOUND BREAST - RIGHT REASON FOR EXAM: Female, 59 years old. Nipple discomfort. TECHNIQUE: Axial and longitudinal images of the RIGHT breast were performed with a high resolution ultrasound transducer. # OF IMAGES: 21 COMPARISON: Comparison is made with prior mammogram done earlier today. FINDINGS: RIGHT Breast: The retroareolar region of the right breast was examined by ultrasound. No sonographic abnormality is seen. IMPRESSION: No sonographic abnormality is seen. ASSESSMENT CATEGORY: BIRADS Category 1: Negative. A letter regarding these results will be sent to the patient by the facility within 30 days. Electronically Signed: Dheeraj Valdez, at 10:45 EDT , Service support , STUDY: ULTRASOUND BREAST - LEFT REASON FOR EXAM: Female, 59 years old. Discomfort of the left areolar region. TECHNIQUE: Axial and longitudinal images of the LEFT breast were performed with a high resolution ultrasound transducer. # OF IMAGES: 21 COMPARISON: Comparison is made with prior mammogram done earlier today. FINDINGS: LEFT Breast: The retroareolar region of the breast was examined by ultrasound. No sonographic abnormality is seen. US/Breast Limited Unilateral IMPRESSION: No sonographic abnormality is seen. ASSESSMENT CATEGORY: BIRADS Category 1: Negative. A letter regarding these results will be sent to the patient by the facility within 30 days. Electronically Signed: Dheeraj Valdez, at 10:53 EDT , Service support ,
--- NOTE | 2019-12-19 08:50 | BI_ITS ---
MAMMOGRAPHY - BILATERAL DIAGNOSTIC REASON FOR EXAM: Female, 59 years old. Bilateral nipple itchiness. PERTINENT HISTORY: Grandmother with breast cancer. Aunts with breast cancer. Prior right stereotactic breast biopsy. TECHNIQUE: Digital bilateral breast kirk (3D mammographic acquisition) in the CC and MLO projections. 2-D mediolateral oblique (MLO) and craniocaudad (CC) views of both breasts were obtained. CAD: Full Field Digital Mammography with Computer Added Detection was performed. COMPARISON: Comparison is made with prior examination dated June 13, 2015 and April 12, 2016. FINDINGS: Breast Composition: The breasts are almost entirely fatty. There are no dominant masses or suspicious calcifications. A tissue clip marker is seen in the upper slightly lateral deep portion of the right breast. No other significant abnormalities are identified. There has been no significant change since the prior study. BI/DIAG MAMM W/CAD, BILAT IMPRESSION: Stable bilateral diagnostic mammogram. With the patient''s history of bilateral nipple itchiness, ultrasound of both breasts is recommended. ASSESSMENT CATEGORY: BIRADS Category 0: Incomplete. Need additional imaging evaluation. A letter regarding these results will be sent to the patient by the facility within 30 days. Approximately 10% of breast cancers are not detected by mammography. A normal mammogram should not delay biopsy of a clinically suspicious abnormality. Electronically Signed: Dheeraj Valdez, at 10:18 EDT , Service support ,
== END | disposition home or self-care (01) ==
PROVIDERS: PCP Family Medicine; Referring Provider Student in an Organized Health Care Education/Training Program; Visit Provider Student in an Organized Health Care Education/Training Program
DX: N64.4 Mastodynia (principal); L29.9 Pruritus, unspecified; Z80.3 Family history of malignant neoplasm of breast
CPT/HCPCS: 76642; 77062; 77066; G0279

== ENCOUNTER → 2020-05-21 10:21 | Outpatient (CLI) | payer OTHER, SELFPAY ==
[2019-04-30 08:16] VITALS: BMI 30.4
--- NOTE | 2020-05-21 10:25 | BD_ITS ---
STUDY: DUAL ENERGY X-RAY ABSORPTIOMETRY / DXA REASON FOR EXAM: Female, 59 years old. Pat is 211.5# and 64 and quot; a loss of 1 and quot;per pat. Took anti-seizure meds for about 1 month. Hx of several/many knee and back steroid injections. Pat has a diuretic in her BP meds. Exercises a little. Mom has osteo. Hx of a L5-S1 fusion. TECHNIQUE: Bone Mineral Density (BMD) measurements of lumbar spine and bilateral hips were obtained. COMPARISON: None. FINDINGS: Lumbar Spine (L1-L4): g/cm2 (1.273) / T-score (0.9) / Z-score (2.0) Findings are suggestive of normal bone density with a low fracture risk. Left Femur Total: g/cm2 (1.019) / T-score (0.1) / Z-score (1.0) Left Femoral Neck: g/cm2 (0.952) / T-score (-0.6) / Z-score (0.6) Right Femur Total: g/cm2 (1.041) / T-score (0.3) / Z-score (1.1) Right Femoral Neck: g/cm2 (1.005) / T-score (-0.2) / Z-score (1.0) BD/Dexa Bone Density Study IMPRESSION: The patient is considered normal as outlined below according to World Ken Organization (WHO) criteria with a low fracture risk. Reference Information: The T-score is the number of standard deviations above or below the standard which is normal for young adults at their peak bone mineral density. The World Health Organization (WHO) interprets the T-scores as follows: Above -1 Normal bone density Between -1 and -2.5 Osteopenia Equal to / or below -2.5 Osteoporosis As a practical clinical guideline, osteopenia may be graded as follows: Mild -1 through -1.5 Moderate -1.6 through -2.0 Severe -2.1 through -2.4 The Z-score is the number of standard deviations above or below age-matched controls. A Z-score of less than -1.5 would be considered abnormal. References: 1. NIH Osteoporosis and Related Bone Diseases www osteo.org 2. International Society for Clinical Densitometry www iscd.org 3. National Osteoporosis Foundation www nof.org Electronically Signed: Dheeraj Valdez, at 12:30 EST , Service support ,
== END ==
PROVIDERS: PCP Student in an Organized Health Care Education/Training Program; Referring Provider Student in an Organized Health Care Education/Training Program; Visit Provider Student in an Organized Health Care Education/Training Program
DX: Z78.0 Asymptomatic menopausal state (principal)
CPT/HCPCS: 77080

== ENCOUNTER 2020-06-30 22:14 | Emergency (ER) | payer OTHER, SELFPAY ==
[2019-04-30 08:16] VITALS: BMI 30.4
[2020-06-30 22:15] VITALS: BP 161/99; PULSE 82; RESP 20; TEMP 35.9; O2SAT 99; BMI 35.9
--- NOTE | 2020-06-30 22:40 | ED.DCSUM_ITS ---
History of Present Illness Chief Complaint: Flank Pain Informant: Patient - Abdominal Pain/Flank Pain Onset: Hours - 2 Context: Sudden Onset Timing: Continuous, Waxes and wanes Quality: Aching Location: Left Flank Current Severity: Severe Maximum Severity: Severe Worsened by: Nothing Relieved by: Nothing - Nausea/Vomiting/Emesis GI Symptom: Nausea, Vomiting Onset: Today Quality: Nonbilious - Diarrhea/Melena/Hematochezia GI Symptom: Diarrhea. Negative for: Melena, Hematochezia Onset: Today Stool Quality: Loose Severity: Mild Associated Symptoms: Urgency. Negative for: Dysuria, Frequency, Hematuria Narrative: All symptoms including left flank pain radiating toward the groin, nausea, vomiting, diarrhea, all started simultaneously around 2 hours ago. Pain was severe suddenly. She has urinary urgency, feels like she needs to urinate but it is only tingling. She has never had this before. No known history of kidney stones. She has had a prior but no other abdominal surgeries. She is overall fairly healthy. Pain goes into her left back but nowhere else. She has chronic back discomfort but this is totally different and much worse. She denies any hematuria. No recent illnesses, no history of COVID-19 or any exposure that she knows of, she presents during the pandemic. - Past Medical History (1) Hyperlipidemia Status: Chronic (2) Sleep apnea Status: Chronic (3) Hypertension Status: Chronic Past Medical History - Allergies and Home Meds Allergies/Adverse Reactions: Allergies meperidine [From Demerol] Allergy (Verified 06/30/20 22:15) Shortness of breath ETHIBOND STITCHES Allergy (Uncoded 06/30/20 22:15) NON HEALING/INFECTION surgical steel Allergy (Uncoded 06/30/20 22:15) Other Pt states hardware had to be removed because was eating at [facility] Primary Care Physician: Titus Rockwell DO [Primary Care Provider] - Surgical History: - - Knee surgery, Smoking Status: Never smoker - Family History Maternal Family History: Family History (Last Reviewed 10/30/17 @ 13:36 by Flores Mccallum) Father Arthritis Diabetes Heart disease Hypertension High cholesterol Seizures CVA (cerebral vascular accident) Mother Arthritis Hypertension Osteoporosis Family History: Reports: No pertinent history Review of Systems General: Denies: Chills, Fever, Sweats Eyes: Denies: Visual changes - bilaterally, Diplopia ENT: Denies: Rhinorrhea, Sore throat Cardiovascular: Denies: Chest pain, Palpitations Respiratory: Denies: Dyspnea, Cough, Dyspnea on exertion Gastrointestinal: Reports: Abdominal pain, Nausea, Vomiting, Diarrhea. Denies: Melena, Hematochezia Genitourinary: Denies: Dysuria, Hematuria, Frequency Musculoskeletal: Reports: Back pain. Denies: Myalgias, Swelling, Extremity Pain Skin: Denies: Rash, Wounds Neurological: Denies: Headache, Weakness, Numbness Physical Exam Vital Signs/Narrative: Vital Signs Temp Pulse Resp BP Pulse Ox 06/30/20 22:15 96.7 F L 82 20 H 161/99 H 99 Inital Vital Signs reviewed: Yes General: Well nourished, Well developed, Obese, Acute Distress - Painful. Leaning over the bed standing next to it. Head: Normocephalic, Atraumatic Eyes: Perrl, EOMI ENT: Moist mucous membranes, No rhinorrhea Neck: Supple, Nontender Cardiovascular: Regular rate, Regular rhythm, No murmurs Respiratory: No distress, CTA bilaterally, Chest nontender Abdomen: Soft, Nondistended, Normal bowel sounds, Tender - Left lower quadrant. Negative for: Guarding, Rebound tenderness Back: Normal Inspection, CVA tenderness - Left only. No rash. Extremities: Nontender, No edema Skin: Normal color, No rash, No Trauma Neurological: Alert, Oriented x3, Cranial nerves II-XII grossly intact, Normal Strength, Normal Sensation, Normal Gait Psychological: Normal affect, Normal Mood Diagnostic/Tx/Re-eval Impressions Abdomen/Pelvis CT 06/30/20 22:40 IMPRESSION: Moderate left hydronephrosis due to a 4 mm stone at the ureteral vesicular junction Electronically Signed: Justus Naik MD at 23:32 EST , Service support , 06/30/20 22:40 Abdomen/Pelvis without Cont [CT] Stat Laboratory Results 06/30/20 23:00 Urine Color Yellow Urine Clarity Clear Urine pH 5.0 Ur Specific [place] 1.030 Urine Protein 30 H Urine Glucose (UA) Normal Urine Ketones 5 H Urine Occult Blood 250 H Urine Nitrite Negative Urine Bilirubin Negative Urine Urobilinogen 1 H Ur Leukocyte Esterase 100 H Urine RBC 25-50 SEEN Urine WBC 0-5 SEEN Ur Squamous Epith Cells 0 SEEN Calcium Oxalate Crystal 1+ Urine Bacteria RARE Hyaline Casts 0-5 SEEN Urine Mucus 0 SEEN - Medical Decision Making After Toradol and morphine, with Zofran, patient was feeling much better. She did not require any other doses of analgesics during her ED visit, including after discharge waiting on a ride. 4 mm stone with hydronephrosis explains her discomfort, diverticulitis was in the differential but less likely in the CT ruled that out. Expectant management is indicated for this, she was given urine strainers to use at home and instructions as well as prescriptions for analgesics and Zofran. ED Disposition - Plan for ED Patient: Disposition: Home or Assisted Living Diagnosis: Renal colic on left side, Urolithiasis Instructions: ED Kidney Stone w/ Colic Prescriptions: Oxycodone HCl/Acetaminophen [Percocet 5/325] 1 tab PO Q4H PRN PRN 3 Days #15 tab PRN Reason: Pain Prescription Printed Ondansetron [Zofran Odt] 8 mg PO Q8H PRN PRN #20 tab PRN Reason: Nausea Prescription Printed Referrals: Rohcelle Leyva MD [STAFF PHYSICIAN] - 1-2 Weeks (if still having pain and stone not yet passed)
--- NOTE | 2020-06-30 22:40 | CT_ITS ---
STUDY: CT ABDOMEN AND PELVIS WITHOUT CONTRAST REASON FOR EXAM: Female, 59 years old. LEFT FLANK PAIN AND LLQ PAIN X 2 HOURS WITH N/V/D, HX C-SECTIONS RADIATION DOSAGE (If Supplied By Facility): CTDIvol = ( 17.55 ) mGy, DLP = ( 811.24 ) mGycm TECHNIQUE: Transaxial images were obtained from the dome of the diaphragm to the symphysis pubis without oral contrast, and without intravenous contrast. Sagittal and coronal images were reconstructed. Individualized dose optimization techniques were used for this CT. COMPARISON: 10/09/2017 CT abdomen and pelvis FINDINGS: Subsegmental atelectasis left base. The visualized portions of the heart are within normal limits. Normal liver. Normal gallbladder and extrahepatic biliary system. Normal spleen. Normal pancreas. Normal bilateral adrenal glands. Normal right kidney. Moderate left hydronephrosis and perinephric stranding. 4 mm ureterolith at the ureterovesicular junction. Normal visualized stomach. Normal small intestine. Normal colon. The appendix is visualized and appears normal. Normal abdominal aorta. Normal inferior vena cava. Normal retroperitoneum. Bladder is decompressed. Normal abdominal wall. Posterior bony fusion rods and pedicular screws at L5-S1. Degenerative disc disease L2-3. CT/Abdomen/Pelvis without Cont IMPRESSION: Moderate left hydronephrosis due to a 4 mm stone at the ureteral vesicular junction Electronically Signed: Justus Naik MD at 23:32 EST , Service support ,
[2020-06-30] MEDS: Morphine 4 MG/ML Syringe IV (22:55)
[2020-06-30] MEDS: Ketorolac 30 MG/ML Syringe IV (22:55)
[2020-06-30] MEDS: Ondansetron 4 MG/2 ML Vial IV (22:55)
[2020-06-30 23:05] LABS: Mucous, Urine 0 SEEN /hpf (<or=2+); Squamous Epithelial Cells - UA 0 SEEN /hpf (5-10)
[2020-06-30 23:15] LABS: Glucose, Dipstick Normal (Normal); Ketone-Dipstick 5 mg/dl (Negative); Leukocyte Esterase-Dipstick 100 /ul (Negative); Nitrite-Dipstick Negative (Negative); Protein-Dipstick 30 mg/dl (Negative); Urine Urobilinogen 1 mg/dl (Normal)
[2020-06-30 23:32] LABS: Color, Urine Yellow (Yellow); Occult Blood-Urine 250 /ul (Negative); Urine Bilirubin Dipstick Negative (Negative); Urine Clarity Clear (Clear)
[2020-06-30 23:47] LABS: Bacteria RARE /hpf (None Seen); Calcium Oxalate Crystals Ur 1+ /hpf (<or=2+); Red Blood Cells-Urine 25-50 SEEN /hpf (0-5); White Blood Cells 0-5 SEEN /hpf (0-5)
[2020-06-30 23:48] LABS: Hyaline Cast 0-5 SEEN /lpf (0-5)
[2020-07-01 00:42] VITALS: BP 147/89; PULSE 87; RESP 15; O2SAT 98
== END 2020-07-01 00:43 | disposition home or self-care (01) ==
PROVIDERS: Emergency Provider Emergency Medicine; PCP Student in an Organized Health Care Education/Training Program
DX: N13.2 Hydronephrosis with renal and ureteral calculous obstruction (principal); I10 Essential (primary) hypertension; E78.5 Hyperlipidemia, unspecified; G47.30 Sleep apnea, unspecified; E66.9 Obesity, unspecified; Z79.899 Other long term (current) drug therapy
CPT/HCPCS: 74176; 81001; 96374; 96375; 99284; J7030; A4216; J2405

== ENCOUNTER → 2020-10-01 06:52 | Outpatient (CLI) | payer OTHER, SELFPAY ==
--- NOTE | 2020-10-01 07:10 | MRI_ITS ---
STUDY: MRI BRAIN WITH AND WITHOUT CONTRAST REASON FOR EXAM: Female, 59 years old. 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 IV Dotarem 18ml was administered for the contrast portion of the examination. COMPARISON: None. FINDINGS: No diffusion restriction throughout the brain parenchyma. Prominent perivascular space in the left anterior commissure. Normal size of the ventricles and extra-axial spaces for the patient''s age. Normal white matter tracts of the supratentorial brain. Normal bilateral basal ganglia. Normal thalami. There is no extra-axial fluid accumulation. Normal flow voids within the major intracranial circulation suggesting patency by spin echo criteria. Normal venous enhancement. There is no enhancing intra-axial or extra-axial abnormality. Normal sella turcica, pituitary gland, infundibular stalk, optic chiasm and hypothalamus. Normal tectal plate and pineal gland. Normal midbrain, iwona and medulla. Normal cerebellum. Normal basal cisterns. Normal bilateral temporal bones. Normal bilateral internal auditory canals. No demonstrated orbital abnormality, within the constraints of a routine brain study. Normal visualized paranasal sinuses. Normal calvarium and skull base. Normal visualized soft tissue structures. Normal visualized upper cervical spine. MRI/Brain W/WO Contrast IMPRESSION: Normal unenhanced and enhanced MRI of the brain. Electronically Signed: Adama Macedo MD at 11:33 EDT , Service support ,
== END ==
PROVIDERS: PCP Student in an Organized Health Care Education/Training Program; Referring Provider Psychiatry & Neurology Neurology; Visit Provider Psychiatry & Neurology Neurology
DX: G43.719 Chronic migraine without aura, intractable, without status migrainosus (principal)
CPT/HCPCS: 70553

== ENCOUNTER → 2021-05-11 15:10 | Outpatient (CLI) | payer OTHER, SELFPAY ==
--- NOTE | 2021-05-11 15:12 | BI_ITS ---
MAMMOGRAPHY - BILATERAL SCREENING REASON FOR EXAM: Female, 60 years old. Routine annual screening examination. PERTINENT HISTORY: Grandmother with breast cancer. Aunts with breast cancer. Prior right stereotactic breast biopsy. TECHNIQUE: Digital bilateral breast jade (3D mammographic acquisition) in the CC and MLO projections. 2-D mediolateral oblique (MLO) and craniocaudad (CC) views of both breasts were obtained. CAD: Full Field Digital Mammography with Computer Added Detection was performed. COMPARISON: Comparison is made with prior study dated 12/19/2019 and 06/13/2018. FINDINGS: Breast Composition: The breasts are almost entirely fatty. There are no dominant masses or suspicious calcifications. A tissue clip marker is seen in the upper slightly lateral aspect of the right breast. No other significant abnormalities are identified. There has been no significant change since the prior study. BI/SCRN MAMM (CAD)W/JADE BILAT IMPRESSION: Stable bilateral screening mammogram. Yearly follow-up mammogram recommended. (A) ASSESSMENT CATEGORY: BIRADS Category 2: Benign. A letter regarding these results will be sent to the patient by the facility within 30 days. Approximately 10% of breast cancers are not detected by mammography. A normal mammogram should not delay biopsy of a clinically suspicious abnormality. [id number] Electronically Signed: Dheeraj Valdez MD at 15:58 EDT , Service support ,
== END ==
PROVIDERS: PCP Student in an Organized Health Care Education/Training Program; Referring Provider Student in an Organized Health Care Education/Training Program; Visit Provider Student in an Organized Health Care Education/Training Program
DX: Z12.31 Encounter for screening mammogram for malignant neoplasm of breast (principal); Z80.3 Family history of malignant neoplasm of breast
CPT/HCPCS: 77063; 77067

== ENCOUNTER → 2022-05-25 | Outpatient (CLI) | payer OTHER, SELFPAY ==
--- NOTE | 2022-05-25 10:19 | BI_ITS ---
MAMMOGRAPHY - BILATERAL SCREENING REASON FOR EXAM: Female, 61 years old. Routine annual screening examination. PERTINENT HISTORY: Grandmother with breast cancer. Aunt with breast cancer. Remote right stereotactic breast biopsy. TECHNIQUE: Digital bilateral breast jade (3D mammographic acquisition) in the CC and MLO projections. 2-D mediolateral oblique (MLO) and craniocaudad (CC) views of both breasts were obtained. CAD: Full Field Digital Mammography with Computer Added Detection was performed. COMPARISON: Comparison is made with prior study dated 05/11/2021 and 12/19/2019. FINDINGS: Breast Composition: The breasts are almost entirely fatty. There are no dominant masses or suspicious calcifications. A tissue clip marker is once again seen in the deep upper lateral aspect of the right breast. Stable benign-appearing fat-containing left axillary lymph nodes. No other significant abnormalities are identified. There has been no significant change since the prior study. BI/SCRN MAMM (CAD)W/JADE BILAT IMPRESSION: Stable bilateral screening mammogram. Yearly follow-up mammogram recommended. (A) ASSESSMENT CATEGORY: BIRADS Category 2: Benign. A letter regarding these results will be sent to the patient by the facility within 30 days. Approximately 10% of breast cancers are not detected by mammography. A normal mammogram should not delay biopsy of a clinically suspicious abnormality. [id number] Electronically Signed: Dheeraj Valdez MD at 11:40 EST ,
--- NOTE | 2022-05-25 10:24 | BD_ITS ---
STUDY: DUAL ENERGY X-RAY ABSORPTIOMETRY / DXA REASON FOR EXAM: Female, 61 years old. Z13.820 TECHNIQUE: Bone Mineral Density (BMD) measurements of lumbar spine and bilateral hips were obtained. COMPARISON: Comparison is made with prior study dated 05/21/2020. FINDINGS: Lumbar Spine (L1-L4): g/cm2 (1.154) / T-score (1.1) / Z-score (2.6) Findings are suggestive of normal bone density with a low fracture risk. Left Femur Total: g/cm2 (0.997) / T-score (0.4) / Z-score (1.5) Left Femoral Neck: g/cm2 (0.787) / T-score (-0.6) / Z-score (0.8) Right Femur Total: g/cm2 (0.960) / T-score (0.1) / Z-score (1.2) Right Femoral Neck: g/cm2 (0.826) / T-score (-0.2) / Z-score (1.1) The T-Scores on the most recent prior examination were: Lumbar Spine (L1-L4): There has been improvement of bone density since the previous examination. Left Femur Total: which represents an improvement of 4.6%. Right Femur Total: which represents a worsening of 1.4%. BD/Dexa Bone Density Study IMPRESSION: The patient is considered normal as outlined below according to World Ken Organization (WHO) criteria with a low fracture risk. There has been improvement of bone density since the previous examination. Reference Information: The T-score is the number of standard deviations above or below the standard which is normal for young adults at their peak bone mineral density. The World Health Organization (WHO) interprets the T-scores as follows: Above -1 Normal bone density Between -1 and -2.5 Osteopenia Equal to / or below -2.5 Osteoporosis As a practical clinical guideline, osteopenia may be graded as follows: Mild -1 through -1.5 Moderate -1.6 through -2.0 Severe -2.1 through -2.4 The Z-score is the number of standard deviations above or below age-matched controls. A Z-score of less than -1.5 would be considered abnormal. References: 1. NIH Osteoporosis and Related Bone Diseases www osteo.org 2. International Society for Clinical Densitometry www iscd.org 3. National Osteoporosis Foundation www nof.org Electronically Signed: Dheeraj Valdez MD at 10:48 EST ,
== END | disposition home or self-care (01) ==
LOC: OPBD 10:16
PROVIDERS: PCP Student in an Organized Health Care Education/Training Program; Visit Provider Student in an Organized Health Care Education/Training Program
DX: Z12.31 Encounter for screening mammogram for malignant neoplasm of breast (principal); Z80.3 Family history of malignant neoplasm of breast; Z13.820 Encounter for screening for osteoporosis
CPT/HCPCS: 77063; 77067; 77080

== ENCOUNTER → 2023-03-06 | Outpatient (CLI) | payer OTHER, SELFPAY ==
--- NOTE | 2023-03-06 11:40 | RAD_ITS ---
STUDY: X-RAY - LUMBAR SPINE REASON FOR EXAM: Female, 62 years old. BACK PAIN TECHNIQUE: 4 view(s) of the lumbar spine were obtained. COMPARISON: 2018 FINDINGS: Stable appearance of surgical hardware at L5 and S1. Normal lumbar lordosis. There is no substantial scoliosis. There is a normal alignment of the vertebrae. There is multilevel endplate spondylosis of the lumbar vertebrae. There is multi-level degenerative disc disease with multi-level disc space narrowing. There is no demonstrated fracture. There is atherosclerotic calcification of the abdominal aorta without a demonstrated aneurysm. RAD/L/S Spine Min 4 Views IMPRESSION: Degenerative and postsurgical changes, no acute findings Electronically Signed: Tyrell Cedeno MD at 12:34 EDT ,
--- NOTE | 2023-03-06 11:40 | RAD_ITS ---
STUDY: X-RAY - RIGHT SHOULDER REASON FOR EXAM: Female, 62 years old. PAIN RIGHT SHOULDER TECHNIQUE: 4 view(s) of the shoulder. COMPARISON: None. FINDINGS: Normal glenohumeral articulation. There is degenerative arthrosis of the acromioclavicular joint without inferior osseous spur formation. Normal acromion. Normal humeral head and visualized proximal humerus. The soft tissue structures are unremarkable. Normal visualized pulmonary apex. RAD/Shoulder min 2 Views IMPRESSION: AC joint arthrosis Electronically Signed: Tyrell Cedeno MD at 12:33 EDT ,
--- NOTE | 2023-03-06 11:40 | RAD_ITS ---
STUDY: X-RAY - THORACIC SPINE REASON FOR EXAM: Female, 62 years old. BACK PAIN TECHNIQUE: 3 view(s) of the thoracic spine were obtained. COMPARISON: None. FINDINGS: Normal kyphosis of the thoracic spine. There is no substantial scoliosis. There is multilevel endplate spondylosis of the thoracic vertebrae. There is multilevel disc space narrowing of the thoracic spine. The soft tissue structures are unremarkable. RAD/Thoracic Spine 3 Views IMPRESSION: Age consistent degenerative changes, no acute findings Electronically Signed: Tyrell Cedeno MD at 12:32 EDT ,
== END | disposition home or self-care (01) ==
LOC: RAD 11:12
PROVIDERS: PCP Student in an Organized Health Care Education/Training Program; Referring Provider Student in an Organized Health Care Education/Training Program; Visit Provider Student in an Organized Health Care Education/Training Program
DX: M25.511 Pain in right shoulder (principal); M54.9 Dorsalgia, unspecified
CPT/HCPCS: 72072; 72110; 73030

== ENCOUNTER → 2023-05-26 | Outpatient (CLI) | payer OTHER, SELFPAY ==
--- NOTE | 2023-05-26 09:26 | BI_ITS ---
MAMMOGRAPHY - BILATERAL SCREENING REASON FOR EXAM: Female, 62 years old. Routine annual screening examination. PERTINENT HISTORY: Grandmother with breast cancer. Aunts with breast cancer. History of prior right stereotactic breast biopsy. TECHNIQUE: Digital bilateral breast jade (3D mammographic acquisition) in the CC and MLO projections. 2-D mediolateral oblique (MLO) and craniocaudad (CC) views of both breasts were obtained. CAD: Full Field Digital Mammography with Computer Added Detection was performed. COMPARISON: Comparison is made with prior study dated May 25, 2022 and May 11, 2021. FINDINGS: Breast Composition: The breasts are almost entirely fatty. There are no dominant masses or suspicious calcifications. A tissue clip marker is once again seen in the deep upper outer aspect of the right breast. Stable fat containing bilateral axillary lymph nodes. No other significant abnormalities are identified. There has been no significant change since the prior study. BI/SCRN MAMM (CAD)W/JADE BILAT IMPRESSION: Stable bilateral screening mammogram. Yearly follow-up mammogram recommended. (A) ASSESSMENT CATEGORY: BIRADS Category 2: Benign. A letter regarding these results will be sent to the patient by the facility within 30 days. Approximately 10% of breast cancers are not detected by mammography. A normal mammogram should not delay biopsy of a clinically suspicious abnormality. [id number] Electronically Signed: Dheeraj Valdez MD at 10:49 EST ,
== END | disposition home or self-care (01) ==
LOC: OPBI 09:25
PROVIDERS: PCP Student in an Organized Health Care Education/Training Program; Referring Provider Student in an Organized Health Care Education/Training Program; Visit Provider Student in an Organized Health Care Education/Training Program
DX: Z12.31 Encounter for screening mammogram for malignant neoplasm of breast (principal)
CPT/HCPCS: 77063; 77067

== ENCOUNTER 2024-03-10 17:17 | Emergency (ER) | payer OTHER, SELFPAY ==
[2024-03-10 17:18] VITALS: BP 210/108; PULSE 89; RESP 16; TEMP 37; O2SAT 98
--- NOTE | 2024-03-10 17:47 | EKG12_ITS ---
Test Reason : NEURO Blood Pressure : / mmHG Vent. Rate : 075 BPM Atrial Rate : 075 BPM P-R Int : 184 ms QRS Dur : 146 ms QT Int : 422 ms P-R-T Axes : 034 -21 170 degrees QTc Int : 471 ms Normal sinus rhythm Left bundle branch block Abnormal ECG Confirmed by KOLBY HERNANDEZ, PATRICIA ([id number]), website/blog editor TORI RUVALCABA ([id number]) on 03/12/2024 8:02:35 AM Referred By: Confirmed By:PATRICIA JARRETT MD
--- NOTE | 2024-03-10 17:47 | CT_ITS ---
INDICATION: Paresthesias. Right-sided numbness and tingling EXAMINATION: CT BRAIN - CT Head or Brain W/O Contrast Injection TECHNIQUE: Multiple axial images were obtained of the head without intravenous contrast. A radiation dose optimization technique was used for this scan. IV Contrast dosage and agent: None. RADIATION DOSAGE (If Supplied By Facility): CTDIvol = ( 44.99 ) mGy, DLP = ( 798.92 ) mGycm COMPARISON: No relevant prior examinations for comparison FINDINGS: HEMISPHERES: 1. The cerebral parenchyma, ventricular system, subarachnoid spaces have normal configuration and density. There is a normal gyral pattern. There is normal bowens/white differentiation. No midline shift.. 2. Mild chronic microvascular deep white matter changes. 3. There is incidental note of a LEFT sublenticular cyst versus dilated perivascular space. 4. No intraparenchymal mass, hemorrhage, or acute territorial infarct. CEREBELLUM - BRAINSTEM: The cerebellum, brainstem, basilar and suprasellar cisterns have normal appearance. No Chiari malformation. PITUITARY: Infundibulum and pituitary have normal configuration. Midline structures appear normal. CSF SPACES: Appropriate for age. No hydrocephalus. Basal cisterns are patent. VESSELS: 1. No significant vascular calcifications in the cavernous carotid vessels. 2. No hyperdense vascular signs noted.. ORBITS AND PARANASAL SINUSES: 1. Normal appearance of the bony orbits. Normal appearance of the globes and retrobulbar soft tissues.. 2. Mucosal thickening present within the maxillary antra bilaterally as well as the ethmoid air cells. BONY ELEMENTS: Bony elements of the cranial vault, facial skeleton and skull base have normal appearance. SCALP AND SOFT TISSUES: Normal appearance of the soft tissues of the scalp and the visualized face OTHER: None ASPECTS Score for Acute Strokes: 10 CT/Brain/Head without Contrast IMPRESSION: 1. Mild chronic microvascular deep white matter changes. 2. No intracranial mass, hemorrhage, or acute territorial infarct. 3. Incidental note of a prominent perivascular space versus sublenticular cyst on the LEFT. 4. No intracranial mass, hemorrhage or acute territorial infarct. 5. Mild to moderate sinus disease Electronically Signed: Shane Reis MD at 18:41 EDT ,
--- NOTE | 2024-03-10 17:48 | EX.ED.DYSGE1 ---
HPI History of Present Illness Chief Complaint: Numb/Ting Informant: patient Narrative Narrative: 63-year-old female presenting to the emergency room with paresthesias of the right side of her body. Patient states that this morning when she awoke she noticed that the left leg seemed numb and tingling. She states that it seems like there is significantly decreased sensation. She also notes that on the right side of her abdomen chest/breast right arm right face and periorbital. She states that she had something similar to this involving the left side of her body when she was told she was allergic to lisinopril and was given an EpiPen. She denies any headache or vision changes. She states that she restarted a statin 3 days ago that she just was not taking. No urinary symptoms or fevers. She states that she had a couple mosquito bites recently but no tick bites. Patient notes that she has not been taking her blood pressure medication. Blood pressure noted to be 210/108 in triage. [facility] Medical History Blood in stool Diarrhea Nausea Abdominal pain Sleep apnea Hypertension Arthritis Back problem GI bleeding Colitis Home Medications ?Medication ?Instructions ?Recorded ?Last Taken ?Type lisinopril 10 1 tab PO DAILY BP 01/16/17 10/09/17 History mg-hydrochlorothiazide 12.5 mg 1 TABLET tablet valacyclovir 1 gram tablet 1,000 mg PO BID PRN COLD SORE 01/16/17 10/09/17 History 1000 MG rosuvastatin 10 mg tablet 10 mg PO QHS CHOLESTEROL 10/09/17 10/09/17 History 10 MG tizanidine 2 mg tablet 2 mg PO Q8H PRN BACK SPASMS 10/09/17 10/09/17 History 2 MG hydrocodone-acetaminophen 5-325mg 1 tab PO Q6H PRN PRN Severe Pain 10/13/17 Unknown Rx 5mg-325mg () #20 tabs levofloxacin 500 mg tablet 500 mg PO DAILY #10 tabs 10/13/17 Unknown Rx metronidazole 500 mg tablet 500 mg PO Q8H #30 tabs 10/13/17 Unknown Rx celecoxib 200 mg capsule 200 mg PO QDAY 10/20/17 Unknown History ondansetron 4 mg disintegrating 8 mg (2 x 4 mg) PO Q8H PRN PRN 07/01/20 Unknown Rx tablet Nausea #20 tabs Allergy/AdvReac Type Severity Reaction Status Date / Time contact metal agent Allergy Other Verified 03/03/23 13:52 meperidine (From Demerol) Allergy Shortness Verified 06/30/20 22:15 of breath suture Allergy Other Verified 10/24/22 10:26 Family History Father Arthritis Diabetes Heart disease Hypertension High cholesterol Seizures CVA (cerebral vascular accident) Mother Arthritis Hypertension Osteoporosis Surgical History H/O colonoscopy Hx of shoulder surgery History of total bilateral knee replacement Hx of arthroscopy of knee History of bunionectomy of right great toe History of back surgery Hx of section Social History Smoking Status: Never smoker second hand exposure: No alcohol intake: current alcohol intake frequency: holidays/special occasions only Alcohol type: wine substance use type: does not use caffeine: Yes what type of physical activity do you participate in: none frequency: does not exercise seatbelt use: always ROS ROS ED Constitutional Constitutional ED: Denies chills, fever(s) or weight loss Eyes Eyes: Denies change in vision or diplopia ENT ENT ED: Denies ear pain, rhinorrhea or sore throat Cardiovascular Cardiovascular: Denies chest pain, orthopnea, palpitations or racing heartbeat Respiratory/Chest Respiratory/Chest: Denies cough, dyspnea or orthopnea Gastrointestinal Gastrointestinal: Denies abdominal pain, diarrhea, nausea or vomiting Genitourinary Genitourinary ED: Denies dysuria, hematuria or urinary frequency Musculoskeletal Musculoskeletal: Denies arthralgias or myalgias Integumentary Denies abscess or rash Neurologic Neurologic: Reports paresthesias RUE and RLE and other Details: Paresthesias of right abdomen and right chest right face excluding forehead and periorbital regions ; Denies headache(s) or weakness Psychiatric Psychiatric: Denies anxiety, depression, suicidal ideation or suicidal thoughts Endocrine Endocrinology: Denies polydipsia, polyphagia or polyuria Allergic/Immunologic Allergic/Immunologic ED: Denies mouth swelling, tongue swelling or urticaria EXAM Physical Exam Const Vital Signs: 03/10/24 17:18 03/10/24 18:17 03/10/24 19:17 Temperature 98.6 F Temperature Source Temporal Pulse Rate 89 70 74 Respiratory Rate 16 18 18 Blood Pressure 210/108 H 201/96 H 182/92 H Blood Pressure Mean 142 131 122 Pulse Ox 98 98 98 Oxygen Delivery Method Room Air Room Air 03/10/24 20:00 03/10/24 21:00 03/10/24 21:33 Temperature 98.2 F Temperature Source Pulse Rate 98 88 87 Respiratory Rate 16 16 20 H Blood Pressure 182/92 H 143/66 H 146/70 H Blood Pressure Mean 122 91 95 Pulse Ox 98 97 98 Oxygen Delivery Method Room Air Room Air Positive well nourished, well developed and obese General Appearance ED: well developed Nutritional Appearance: obese HEENT Reports normocephalic, head/scalp atraumatic and moist mucous membranes Eyes PERRL and EOMs intact bilaterally Neck no lymphadenopathy, supple and no JVD Resp normal respiratory effort and clear to auscultation bilaterally Cardio regular rate, regular rhythm and no murmurs GI normal to inspection, nondistended, normoactive bowel sounds and non-tender Palpation: soft Back/Spine no CVA tenderness and normal ROM Extremity normal to inspection General Extremety ED: Negative for edema General Extremity: Negative for edema Neuro oriented x3 and CN's II-XII intact bilaterally Neuro Narrative: Patient reports decreased sensation of right leg right abdomen right chest right arm particularly the shoulder and right face and perioral region excluding the forehead. Sensorium / Orientation: alert Motor Exam: strength 5/5 throughout Psych mental status grossly normal Mood & Affect: Negative for depressed or tearful Skin no rashes or lesions noted and no wounds MDM MDM MDM Narrative Medical decision making narrative: Differential diagnosis includes press electrolyte abnormalities medication reaction conversion stroke spinal disorders Patient's blood work shows a white count 11.6 glucose 156. Normal troponin urinalysis normal EKG is a normal sinus rhythm. My independent interpretation of the chest x-ray is no acute process. CT of the brain is no acute process. Patient received hydralazine for blood pressure and that is down encouraged her to take her medications. Very difficult to explain the patient's symptomology. I do not believe that a central brain process and of itself can explain her symptoms especially with thoracoabdominal paresthesias. She has paresthesias of the face minus the forehead arms trunk leg but without obvious muscle weakness. I do not think that this would represent a stroke and certainly 12 hours after waking up with symptoms without seeing some additional findings. Dad and the patient states that the arm symptoms are more in the shoulder and that the hand symptoms are now resolving. I cannot say definitively what is causing her symptoms. I would recommend blood pressure control primary care follow-up if not improving return if worsening History & Record Review Discussion w/independent historian: Patient and Significant other Lab Data Attestation: I reviewed the patient's lab results. Labs: Laboratory Results - last 24 hr 03/10/24 03/10/24 17:40 18:10 WBC 11.6 H RBC 4.79 Hgb 13.9 Hct 41.9 MCV 87.5 MCH 29.0 MCHC 33.2 RDW Std Deviation 39.6 RDW Coeff of Arsen 12.4 Plt Count 325 MPV 11.3 Immature Gran % (Auto) 0.300 Neut % (Auto) 56.1 Lymph % (Auto) 31.2 [place]ley % (Auto) 6.4 Eos % (Auto) 5.6 H Baso % (Auto) 0.4 Absolute Neuts (auto) 6.5 Absolute Lymphs (auto) 3.62 Nucleated RBC % 0 Sodium 141 Potassium 3.7 Chloride 108 H Carbon Dioxide 25.0 Anion Gap 8 BUN 14 Creatinine 0.76 Est GFR (MDRD) Af Amer 98 Est GFR (MDRD) Non-Af 81 BUN/Creatinine Ratio 18.3 Glucose 156 H Calcium 9.5 Magnesium 2.2 Total Bilirubin 0.30 Direct Bilirubin 0.08 AST 15 ALT 25 Alkaline Phosphatase 113 Total Creatine Kinase 71 Troponin I High Sens 47 Total Protein 7.3 Albumin 3.9 Globulin 3.4 Urine Color Yellow Urine Clarity Clear Urine pH 7.0 Ur Specific [place] 1.010 Urine Protein Negative Urine Glucose (UA) Normal Urine Ketones Negative Urine Occult Blood Negative Urine Nitrite Negative Urine Bilirubin Negative Urine Urobilinogen Normal Ur Leukocyte Esterase Negative Urine RBC 0 SEEN Urine WBC 0 SEEN Ur Squamous Epith Cells 0 SEEN Urine Bacteria 0 SEEN Urine Mucus 0 SEEN Radiography Diagnostic Testing: Clinical Impression(s) from Imaging Studies Brain CT 03/10/24 17:47 IMPRESSION: 1. Mild chronic microvascular deep white matter changes. 2. No intracranial mass, hemorrhage, or acute territorial infarct. 3. Incidental note of a prominent perivascular space versus sublenticular cyst on the LEFT. 4. No intracranial mass, hemorrhage or acute territorial infarct. 5. Mild to moderate sinus disease Electronically Signed: Shane Reis MD at 18:41 EDT , Chest X-Ray 03/10/24 18:15 IMPRESSION: 1. Borderline cardiomegaly, no evidence congestive failure. 2. No focal infiltrate consolidation or effusion. Electronically Signed: Shane Reis MD at 18:42 EDT , EKG Initial EKG: Attestation: I personally reviewed and interpreted this EKG as follows: Comments: Normal sinus rhythm ventricular rate of 75 bpm. Left bundle branch block noted Discharge Plan Triage Chief Complaint: Numb/Ting ED Provider: Rayshawn Hernandes Dx/Rx/DC Orders Clinical Impression: Paresthesias, Hypertension Instructions: ED Hypertension New Begin Treatment, ED Paraesthesias Prescriptions: No Action celecoxib 200 mg capsule 200 mg PO QDAY valacyclovir 1,000 MG tablet 1,000 mg PO BID PRN (Reason: COLD SORE) lisinopril-hydrochlorothiazide 1 TABLET tablet 1 tab PO DAILY Patient Comments: BP tizanidine 2 MG tablet 2 mg PO Q8H PRN (Reason: BACK SPASMS) rosuvastatin 10 MG tablet 10 mg PO QHS hydrocodone-acetaminophen 1 TABLET tablet 1 tab PO Q6H PRN PRN (Reason: Severe Pain (6-10/10)) Qty: 20 0RF levofloxacin 500 MG tablet 500 mg PO DAILY Qty: 10 0RF metronidazole 500 MG tablet 500 mg PO Q8H Qty: 30 0RF ondansetron 4 MG tablet 8 mg PO Q8H PRN PRN (Reason: Nausea) Qty: 20 0RF Primary Care Provider: Titus Rockwell Referrals: Titus Rockwell DO [Primary Care Provider] - 1-2 Days if not improving Activity Restrictions/Additional Instructions: If new or worsening symptoms return to emergency Please take your medications especially your antihypertensives Print Language: Slovenian Disposition Disposition: Home, Self Care Discharge Date/Time: 03/10/24 21:34 NIHSS NIHSS 1a. Level of Consciousness: Alert; keenly responsive 1b. LOC Questions: Answers BOTH questions correctly. 1c. LOC Commands: Performs both tasks correctly. 2. Best Gaze: Normal 3. Visual: No visual loss 4. Facial Palsy: Normal symmetrical movements 5a. Left Arm: No drift; arm holds 90 (or 45) degrees for full 10 seconds 5b. Right Arm: No drift; arm holds 90 (or 45) degrees for full 10 seconds 6a. Left Leg: No drift; leg holds 30-degree position for full 5 seconds 6b. Right Leg: No drift; leg holds 30-degree position for full 5 seconds 7. Limb Ataxia: Absent 8. Sensory: [id number] sensory loss; 9. Best Language: No aphasia; normal 10. Dysarthria: Normal 11. Extinction and Inattention: No abnormality Total: 1
[2024-03-10 18:10] LABS: Absolute Lymphocyte Count 3.62 X10^3/uL (0.83-4.51); Absolute Neutrophil Count 6.5 X10^3/uL (2.0-7.7); Basophil# 0.05 X10^3/uL; Basophil% 0.4 % (0-1); Eosinophil# 0.65 X10^3/uL; Eosinophils% 5.6 % (0-5); Hematocrit 41.9 % (37-47); Hemoglobin 13.9 g/dL (12.0-15.0); Lymphocyte # 3.62 X10^3/ul (0.83-4.51); Lymphocyte % 31.2 % (19-41); Mean Corp Hgb Conc 33.2 g/dL (32-36); Mean Corpuscular Volume 87.5 fL (81-99); Mean Platelet Vol. 11.3 fl (6.2-12.0); Monocyte# 0.74 X10^3/uL; Monocyte% 6.4 % (0-10); NRBC Flagged by Analyzer 0 % (0-5); Neutrophil # 6.52 X10^3/uL (2.7-7.7); Neutrophil % 56.1 % (47-70); Platelet Count 325 K/mm3 (150-450); RBC Distribution Width CV 12.4 % (11.6-14.6); RBC Distribution Width SD 39.6 fl (35.1-43.9); Red Blood Count 4.79 M/mm3 (4.2-5.4); White Blood Count 11.6 K/mm3 (4.4-11.0)
--- NOTE | 2024-03-10 18:15 | RAD_ITS ---
INDICATION: Hypertension EXAMINATION/TECHNIQUE: X-RAY - XR Chest 1 View COMPARISON: No previous relevant examinations available for comparison.. FINDINGS: LIFE-SUPPORT AND LINES: 1. None HEART AND VESSELS: Cardiac silhouette is upper limit of normal. No evidence congestive failure. LUNGS AND PLEURAL SPACES: Lungs are clear. No focal infiltrate, consolidation or effusions. No evidence of pneumothorax. No pulmonary mass is noted. MEDIASTINUM AND HILAR REGIONS: No masses adenopathy noted. No areas of calcification. Visualized upper airway is normal in position. BONY ELEMENTS: No acute bony changes noted. RAD/Chest 1 View (Portable) IMPRESSION: 1. Borderline cardiomegaly, no evidence congestive failure. 2. No focal infiltrate consolidation or effusion. Electronically Signed: Shane Reis MD at 18:42 EDT ,
[2024-03-10 18:17] VITALS: BP 201/96; PULSE 70; RESP 18; O2SAT 98
[2024-03-10 18:21] LABS: Bacteria 0 SEEN /hpf (None Seen); Color, Urine Yellow (Yellow); Glucose, Dipstick Normal (Normal); Ketone-Dipstick Negative (Negative); Leukocyte Esterase-Dipstick Negative /ul (Negative); Mucous, Urine 0 SEEN /hpf (<or=2+); Nitrite-Dipstick Negative (Negative); Occult Blood-Urine Negative /ul (Negative); Protein-Dipstick Negative (Negative); Red Blood Cells-Urine 0 SEEN /hpf (0-5); Squamous Epithelial Cells - UA 0 SEEN /hpf (5-10); Urine Bilirubin Dipstick Negative (Negative); Urine Clarity Clear (Clear); Urine Urobilinogen Normal (Normal); White Blood Cells 0 SEEN /hpf (0-5)
[2024-03-10 18:25] LABS: CPK Total, Creatine Kinase 71 U/L (26-192); Magnesium 2.2 mg/dL (1.6-2.6)
[2024-03-10 18:34] LABS: AST(SGOT) 15 U/L (15-37); Alanine Aminotransfer ALT/SGPT 25 U/L (13-56); Albumin, Serum 3.9 g/dL (3.2-5.0); Alkaline Phosphatase 113 U/L (45-117); Anion Gap 8 (5-15); BUN 14 mg/dL (7-18); BUN/Creat Ratio 18.3 RATIO (10-20); Bilirubin, Direct 0.08 mg/dL (0.00-0.30); Calcium,Total 9.5 mg/dL (8.5-10.1); Chloride 108 mmol/L (98-107); Creatinine, Serum 0.76 mg/dL (0.55-1.02); EST Glomerular Filtration Rate 81 mL/min (>60); Est Glom Filt Rate - Afr Amer 98 mL/min (>60); Globulin 3.4 g/dL (2.2-4.2); Glucose 156 mg/dL (74-106); Potassium 3.7 mmol/L (3.5-5.1); Protein, Total 7.3 g/dL (6.4-8.2); Sodium Level 141 mmol/L (136-145); Troponin-I HS 47 pg/mL (3.0-54.0)
[2024-03-10 19:17] VITALS: BP 182/92; PULSE 74; RESP 18; O2SAT 98
[2024-03-10 20:00] VITALS: BP 182/92; PULSE 98; RESP 16; O2SAT 98
[2024-03-10 20:19] VITALS: BMI 32.4
[2024-03-10] MEDS: hydrALAZINE 20 MG/ML Vial IV (20:22)
[2024-03-10 21:00] VITALS: BP 143/66; PULSE 88; RESP 16; O2SAT 97
[2024-03-10 21:33] VITALS: BP 146/70; PULSE 87; RESP 20; TEMP 36.8; O2SAT 98
== END 2024-03-10 21:34 | disposition home or self-care (01) ==
PROVIDERS: Emergency Provider Emergency Medicine; PCP Student in an Organized Health Care Education/Training Program; Visit Provider Emergency Medicine
DX: R20.2 Paresthesia of skin (principal); I10 Essential (primary) hypertension; G47.30 Sleep apnea, unspecified; Z79.899 Other long term (current) drug therapy
CPT/HCPCS: 70450; 71045; 80048; 80076; 81001; 82550; 83735; 84484; 85025; 93005; 96374; 99284; A4216

== ENCOUNTER → 2024-06-13 | Outpatient (CLI) | payer OTHER, SELFPAY ==
--- NOTE | 2024-06-13 15:33 | BI_ITS ---
MAMMOGRAPHY - BILATERAL SCREENING REASON FOR EXAM: Female, 63 years old. Routine annual screening examination. PERTINENT HISTORY: Grandmother with breast cancer. Aunt with breast cancer. History of prior right stereotactic breast biopsy. TECHNIQUE: Digital bilateral breast jade (3D mammographic acquisition) in the CC and MLO projections. 2-D mediolateral oblique (MLO) and craniocaudad (CC) views of both breasts were obtained. CAD: Full Field Digital Mammography with Computer Added Detection was performed. COMPARISON: Comparison is made with prior study May 26, 2023 June 24, 2022. FINDINGS: Breast Composition: The breasts are almost entirely fatty. There are no dominant masses or suspicious calcifications. A tissue clip marker is seen in the deep upper lateral aspect of the right breast. No other significant abnormalities are identified. There has been no significant change since the prior study. BI/SCRN MAMM (CAD)W/JADE BILAT IMPRESSION: Stable bilateral screening mammogram. Yearly follow-up mammogram recommended. (A) ASSESSMENT CATEGORY: BIRADS Category 2: Benign. A letter regarding these results will be sent to the patient by the facility within 30 days. Approximately 10% of breast cancers are not detected by mammography. A normal mammogram should not delay biopsy of a clinically suspicious abnormality. [id number] Electronically Signed: Dheeraj Valdez MD at 8:22 EST ,
--- NOTE | 2024-06-13 15:53 | BD_ITS ---
STUDY: DUAL ENERGY X-RAY ABSORPTIOMETRY / DXA REASON FOR EXAM: Female, 63 years old. M810 TECHNIQUE: Bone Mineral Density (BMD) measurements of lumbar spine and bilateral hips were obtained. COMPARISON: Comparison is made with prior study dated May 25, 2022. FINDINGS: Lumbar Spine (L1-L4): g/cm2 (1.217) / T-score (1.6) / Z-score (3.3) Findings are suggestive of normal bone density with a low fracture risk. Left Femur Total: g/cm2 (0.959) / T-score (0.1) / Z-score (1.3) Left Femoral Neck: g/cm2 (0.696) / T-score (-1.4) / Z-score (0.1) Right Femur Total: g/cm2 (0.965) / T-score (0.2) / Z-score (1.3) Right Femoral Neck: g/cm2 (0.796) / T-score (-0.5) / Z-score (1.0) The T-Scores on the most recent prior examination were: Lumbar Spine (L1-L4): There has been improvement of bone density since the previous examination. Left Femur Total: which represents a worsening of 3.8%. Right Femur Total: which represents an improvement of 0.5%. BD/Dexa Bone Density Study IMPRESSION: The patient is considered osteopenic as outlined below according to World Ken Organization (WHO) criteria with a low fracture risk. There has been improvement of bone density since the previous examination. Reference Information: The T-score is the number of standard deviations above or below the standard which is normal for young adults at their peak bone mineral density. The World Health Organization (WHO) interprets the T-scores as follows: Above -1 Normal bone density Between -1 and -2.5 Osteopenia Equal to / or below -2.5 Osteoporosis As a practical clinical guideline, osteopenia may be graded as follows: Mild -1 through -1.5 Moderate -1.6 through -2.0 Severe -2.1 through -2.4 The Z-score is the number of standard deviations above or below age-matched controls. A Z-score of less than -1.5 would be considered abnormal. References: 1. NIH Osteoporosis and Related Bone Diseases www osteo.org 2. International Society for Clinical Densitometry www iscd.org 3. National Osteoporosis Foundation www nof.org Electronically Signed: Dheeraj Valdez MD at 11:00 EST ,
== END | disposition home or self-care (01) ==
LOC: OPBD 15:31
PROVIDERS: PCP Student in an Organized Health Care Education/Training Program; Referring Provider Student in an Organized Health Care Education/Training Program; Visit Provider Student in an Organized Health Care Education/Training Program
DX: M81.0 Age-related osteoporosis without current pathological fracture (principal); Z12.31 Encounter for screening mammogram for malignant neoplasm of breast
CPT/HCPCS: 77063; 77067; 77080

== ENCOUNTER → 2025-06-16 | Outpatient (CLI) | payer OTHER, SELFPAY ==
--- NOTE | 2025-06-16 08:32 | BI_ITS ---
EXAM: SCRN MAMM (CAD)W/JADE BILAT DATE: 06/16/2025 CLINICAL HISTORY: F, Age 64 y/o , SCREENING TECHNIQUE: Procedure Code: [id number] Modality: MG Procedure: SCRN MAMM (CAD)W/JADE BILAT COMPARISON: Prior exam(s) dated 06/13/2024, 05/26/2023, and 05/25/2022. FINDINGS: TISSUE DENSITY: There are scattered areas of fibroglandular density. Bilateral Breast Mammographic Findings: No suspicious masses, suspicious cluster of microcalcifications, architectural distortion or secondary signs of malignancy is identified in either breast. Benign vascular calcifications and round microcalcifications are seen in both breasts. A radiopaque clip is seen in the right breast. The biopsy was benign. Post biopsy site is stable. A stable 4 mm well-circumscribed isodense mass in the superior outer, far posterior aspect of the left breast is noted. BI/SCRN MAMM (CAD)W/JADE BILAT IMPRESSION: Benign screening mammogram OVERALL FINAL ASSESSMENT BI-RADS 2: BENIGN RECOMMENDATION: Routine annual follow-up in 1 Year Additional Recommendation none A letter with findings and recommendations will be mailed to the patient. Reading Location: [id number]
== END | disposition home or self-care (01) ==
LOC: OPBI 08:30
PROVIDERS: PCP Student in an Organized Health Care Education/Training Program; Referring Provider Student in an Organized Health Care Education/Training Program; Visit Provider Student in an Organized Health Care Education/Training Program
DX: Z12.31 Encounter for screening mammogram for malignant neoplasm of breast (principal)
CPT/HCPCS: 77063; 77067